=== PATIENT | female | born 1995 | race Hispanic/Latino ===

== ENCOUNTER 2018-04-28 15:07 | Emergency (ER) | payer OTHER, SELFPAY ==
[2018-04-28 16:15] LABS: Urine Bacteria 20-50 /HPF (<20); Urine Culture Reflex Order REFLEXED; Urine RBC >50 /HPF (NONE SEEN)
[2018-04-28 16:22] LABS: Urine Blood 3+ (NEG); Urine Glucose NEGATIVE (NEG); Urine Protein 2+ (NEG); Urine Specific Gravity >1.030 (1.005-1.030)
[2018-04-28 16:39] LABS: Specific Gravity > 1.030 (1.005-1.030)
--- NOTE | 2018-04-28 16:57 | ER ---
Nurse's Notes [facility] Name: Marissa Hernandez Age: 22 yrs Sex: Female : 1995 Arrival Date: 04/28/2018 Time: 15:09 Bed 10 Private MD: Diagnosis: Urinary tract infection, site not specified Presentation: 04/28 15:17 Presenting complaint: Patient states: when i pee today, its rosen really bad, and i hj started bleeding from my vagina; reports fever and chills; denies N/V;. Transition of care: patient was not received from another setting of care. Onset of symptoms was April 28, 2018. Risk Assessment: Do you want to hurt yourself or someone else? Patient reports no desire to harm self or others. Initial Sepsis Screen: Does the patient meet any 2 criteria? No. Patient's initial sepsis screen is negative. Does the patient have a suspected source of infection? No. Patient's initial sepsis screen is negative. Care prior to arrival: None. 15:17 Method Of Arrival: Ambulatory 15:17 Acuity: MAURA 4 hj 15:46 Note provided urine and ran by medical technologist generalist Joe;. Triage Assessment: 15:18 General: Appears in no apparent distress. uncomfortable, Behavior is calm, cooperative, hj appropriate for age. Pain: Complains of pain in bladder. 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 - Social history:: Smoking status: Patient/guardian denies using tobacco, Patient/guardian denies using alcohol. - Ebola Screening: : Patient negative for fever greater than or equal to 101.5 degrees Fahrenheit, and additional compatible Ebola Virus Disease symptoms Patient denies exposure to infectious person Patient denies travel to an Ebola-affected area in the 21 days before illness onset. Screenin:19 Abuse screen: Denies threats or abuse. Denies injuries from another. Nutritional hj screening: No deficits noted. Tuberculosis screening: No symptoms or risk factors identified. Fall Risk None identified. Assessment: 16:30 General: Appears in no apparent distress. Pain: Complains of pain in suprapubic area. iw Neuro: Level of Consciousness is awake, alert, obeys commands, Moves all extremities. Full function. Cardiovascular: Patient's skin is warm and dry. Respiratory: Respiratory effort is even, unlabored, Respiratory pattern is regular. : Reports burning with urination, pain in suprapubic area with urination. Derm: Skin is intact, is healthy with good turgor. Musculoskeletal: Range of motion: intact in all extremities. Vital Signs: 15:19 BP 114 / 47; Pulse 112; Resp 18; Temp 99.3(O); Pulse Ox 100% ; Weight 61.23 kg; Height hj 4 ft. 11 in. (149.86 cm); Pain 6/10; 15:19 Body Mass Index 27.26 (61.23 kg, 149.86 cm) ED Course: 15:09 Patient arrived in ED. mr 15:18 Triage completed. hj 15:19 Arm band placed on right wrist. hj 15:21 Patient has correct armband on for positive identification. Bed in low position. Call hj light in reach. Side rails up X 1. Adult w/ patient. 15:27 [facility]ushing [facility]C [facility]. kb 15:27 Víctor Epperson MD is Attending Physician. kb 15:40 Urine collected: clean catch specimen, clear, blood tinged, Amount Voided: 80mL. jp3 16:17 Urine Dipstick--Ancillary (enter results) Sent. jp3 16:17 Urine Culture Sent. jp3 16:58 Diana Cordoba, RN is Primary Nurse. iw 17:10 No provider procedures requiring assistance completed. Patient did not have IV access iw during this emergency room visit. Administered Medications: 17:05 Drug: Pyridium 200 mg Route: PO; iw 17:05 Drug: Macrobid 100 mg Route: PO; iw Outcome: 16:57 Discharge ordered by . kb 17:12 Discharged to home ambulatory, with family. iw 17:12 Condition: good 17:12 Discharge instructions given to patient, Instructed on discharge instructions, follow up and referral plans. medication usage, Demonstrated understanding of instructions, follow-up care, medications, Prescriptions given X 2. 17:13 Patient left the ED. iw Addendum: 05/01/2018 08:10 Addendum: Culture Results: Positive urine culture. No further action required. Bacteria s s sensitive to prescribed antibiotic. Signatures: Amina Rushing, [facility] CHILD CARE ASSISTANT-Aziza Liseth Khan Diana Cordoba, RN Corrine Nielsen, JUAN CARLOS RANGEL ss Amol Murdock, JUAN CARLOS RN Don Hameed jp3 Corrections: (The following items were deleted from the chart) 04/28 15:23 15:19 Pulse 112bpm; Resp 18bpm; Pulse Ox 100%; Temp 99.3F Oral; 61.23 kg; Height 4 ft. hj 11 in.; BMI: 27.2; Pain 10/11; hj
--- NOTE | 2018-04-28 16:57 | EDPHYS ---
Physician Documentation [facility] Name: Marissa Hernandez Age: 22 yrs Sex: Female : 1995 Arrival Date: 04/28/2018 Time: 15:09 Bed 10 Private MD: ED Physician Víctor Epperson HPI: 04/28 16:50 This 22 yrs old Female presents to ER via Ambulatory with complaints of kb Urinary Problem. 16:50 The patient presents with urinary symptoms, dysuria, frequency, vaginal bleeding that kb is light. Onset: The symptoms/episode began/occurred just prior to arrival. Modifying factors: The symptoms are alleviated by nothing, the symptoms are aggravated by urinating. Associated signs and symptoms: Pertinent positives: dysuria, urinary frequency, vaginal bleeding. Severity of symptoms: At their worst the symptoms were mild, in the emergency department the symptoms are unchanged. The patient has not experienced similar symptoms in the past. The patient has not recently seen a physician. 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 Reports fever and chills as well. 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 - Social history:: Smoking status: Patient/guardian denies using tobacco, Patient/guardian denies using alcohol. - Ebola Screening: : Patient negative for fever greater than or equal to 101.5 degrees Fahrenheit, and additional compatible Ebola Virus Disease symptoms Patient denies exposure to infectious person Patient denies travel to an Ebola-affected area in the 21 days before illness onset. ROS: 16:49 ENT: Negative for injury, pain, and discharge, Neck: Negative for injury, pain, and kb swelling, Cardiovascular: Negative for chest pain, palpitations, and edema, Respiratory: Negative for shortness of breath, cough, wheezing, and pleuritic chest pain, Abdomen/GI: Negative for abdominal pain, nausea, vomiting, diarrhea, and constipation, Back: Negative for injury and pain, MS/Extremity: Negative for injury and deformity, Skin: Negative for injury, rash, and discoloration, Neuro: Negative for headache, weakness, numbness, tingling, and seizure. 16:49 Constitutional: Positive for chills, fever, Negative for body aches, fatigue, malaise, poor PO intake, weight loss. 16:49 : Positive for urinary symptoms, urinary frequency, burning with urination, vaginal bleeding. Exam: 16:49 Constitutional: This is a well developed, well nourished patient who is awake, alert, kb and in no acute distress. Head/Face: Normocephalic, atraumatic. Chest/axilla: Normal chest wall appearance and motion. Nontender with no deformity. No lesions are appreciated. Cardiovascular: Regular rate and rhythm with a normal S1 and S2. No gallops, murmurs, or rubs. Normal PMI, no JVD. No pulse deficits. Respiratory: Lungs have equal breath sounds bilaterally, clear to auscultation and percussion. No rales, rhonchi or wheezes noted. No increased work of breathing, no retractions or nasal flaring. Abdomen/GI: Soft, non-tender, with normal bowel sounds. No distension or tympany. No guarding or rebound. No evidence of tenderness throughout. Skin: Warm, dry with normal turgor. Normal color with no rashes, no lesions, and no evidence of cellulitis. MS/ Extremity: Pulses equal, no cyanosis. Neurovascular intact. Full, normal range of motion. Neuro: Awake and alert, GCS 15, oriented to person, place, time, and situation. Cranial nerves II-XII grossly intact. Motor strength 5/5 in all extremities. Sensory grossly intact. Cerebellar exam normal. Normal gait. Vital Signs: 15:19 BP 114 / 47; Pulse 112; Resp 18; Temp 99.3(O); Pulse Ox 100% ; Weight 61.23 kg; Height 4 ft. 11 in. (149.86 cm); Pain 6/10; 15:19 Body Mass Index 27.26 (61.23 kg, 149.86 cm) MDM: 16:18 Patient medically screened. kb 16:50 Data reviewed: vital signs, nurses notes. Data interpreted: Pulse oximetry: on room air kb is 100 %. Interpretation: normal. Counseling: I had a detailed discussion with the patient and/or guardian regarding: the historical points, exam findings, and any diagnostic results supporting the discharge/admit diagnosis, lab results, the need for outpatient follow up, an OB/Gyne specialist, to return to the emergency department if symptoms worsen or persist or if there are any questions or concerns that arise at home. 04/28 15:26 Order name: Urine Microscopic Only; Complete Time: 16:18 kb 04/28 16:07 Order name: Urine Dipstick--Ancillary (enter results); Complete Time: 16:24 bd 04/28 16:16 Order name: Urine Culture EDOR 04/28 16:29 Order name: Test, Urine; Complete Time: 16:48 EDOR 04/28 15:26 Order name: Urine Dipstick-Ancillary (obtain specimen); Complete Time: 16:17 kb 04/28 15: Order name: Urine Test (obtain specimen); Complete Time: 16:17 kb Administered Medications: 17:05 Drug: Pyridium 200 mg Route: PO; iw 17:05 Drug: Macrobid 100 mg Route: PO; Disposition: 04/29 09:33 Co-signature as Attending Physician, Víctor Epperson MD I agree with the assessment and kdr plan of care. Disposition: 04/28/18 16:57 Discharged to Home. Impression: Urinary tract infection, site not specified. - Condition is Stable. - Discharge Instructions: Urinary Tract Infection, Adult, [id number]. - Prescriptions for Pyridium 200 mg Oral Tablet - take 1 tablet by ORAL route every 8 hours for 3 days; 9 tablet. Macrobid 100 mg Oral Capsule - take 1 capsule by ORAL route every 12 hours for 7 days; 14 capsule. - Medication Reconciliation Form, Thank You Letter, Antibiotic Education, Prescription Opioid Use, Work release form form. - Follow up: Emergency Department; When: As needed; Reason: Worsening of condition. Follow up: Private Physician; When: 2 - 3 days; Reason: Recheck today's complaints, Continuance of care, Re-evaluation by your physician. Signatures: Dispatcher [employer] [facility] Amina Rushing, Víctor Daley MD MD kdr Williams, Irene, RN RN Amol Cancino RN RN Corrections: (The following items were deleted from the chart) 04/28 17:13 16:57 04/28/2018 16:57 Discharged to Home. Impression: Urinary tract infection, site iw not specified. Condition is Stable. Forms are Medication Reconciliation Form, Thank You Letter, Antibiotic Education, Prescription Opioid Use. Follow up: Emergency Department; When: As needed; Reason: Worsening of condition. Follow up: Private Physician; When: 2 - 3 days; Reason: Recheck today's complaints, Continuance of care, Re-evaluation by your physician. kb
[2018-04-28] MEDS ORDERED: PHENAZOPYRIDINE 100MG TAB PO ONE (17:10)
[2018-04-28] MEDS ORDERED: NITROFURAN MACRO 100 MG CAP PO ONE (17:10)
[2018-04-28 17:38] VITALS: BP 114/47; TEMP 99.3; O2SAT 100
== END 2018-04-28 17:13 | disposition home or self-care (01) ==
LOC: ER 15:07
DX: N39.0 Urinary tract infection, site not specified (principal)
CPT/HCPCS: 81003; 81015; 81025; 87077; 87086; 87088; 87186; 99283

== ENCOUNTER 2018-07-07 09:20 | Emergency (ER) | payer SELFPAY ==
[2018-07-07 09:49] LABS: Urine Blood 1+ (NEG); Urine Glucose NEGATIVE (NEG); Urine Protein 1+ (NEG); Urine Specific Gravity >1.030 (1.005-1.030); Urine pH 5.5 (5.0-7.0)
--- OUTSIDE RECORDS SUMMARY | 2018-07-07 10:12 | XMS REPORT ---
:1995 [facility] Address [address] [place] [address] Dr. Barney. [address] [place] [id number] Care Team Providers Name Role Phone Unavailable Unavailable Unavailable Problems This patient has no known problems. Allergies, Adverse Reactions, Alerts This patient has no known allergies or adverse reactions. Medications This patient has no known medications.
[2018-07-07] MEDS ORDERED: NA CHLORIDE 0.9% 2,000 ML ONE (10:29)
[2018-07-07 10:41] LABS: Absolute Lymphocytes (CBC) 0.8 K/uL (0.7-4.9); Absolute Monocytes 0.5 K/uL (0.1-1.3); Absolute Neutrophil 6.5 K/uL (1.8-8.0); Basophils % 0.3 % (0-1.3); Eosinophils % 0.8 % (0-4.4); Hematocrit 42.4 % (36.0-45.0); Lymphocytes % 9.7 % (15.3-44.8); MPV 8.2 fL (7.6-11.3); Monocytes % 6.5 % (3.3-12.3); RBC Red Blood Cell Count 4.95 M/uL (3.86-4.86)
[2018-07-07 11:04] LABS: BUN Blood Urea Nitrogen 6 mg/dL (7-18); Bicarbonate 25 mmol/L (21-32); Glucose Level 91 mg/dL (74-106); Potassium 3.8 mmol/L (3.5-5.1); Sodium Level 137 mmol/L (136-145)
[2018-07-07] MEDS ORDERED: ACETAMINOPHEN 500 MG TAB ONE (11:52)
--- NOTE | 2018-07-07 12:42 | EDPHYS ---
Physician Documentation [facility] Name: Marissa Hernandez Age: 22 yrs Sex: Female : 1995 Arrival Date: 07/07/2018 Time: 09:23 Bed 17 Private MD: None, None ED Physician Víctor Epperson HPI: 07/07 10:47 This 22 yrs old Female presents to ER via Ambulatory with complaints of Flu jr8 Symptoms, Abdominal Pain. 10:47 Patient state that she has had two day history of flu like symptoms. Patients child jr8 tested positive for influenza last week. Patient approximately 7 weeks . Has not been hungry. No bleeding or vaginal spotting. Mild lower abdominal cramping . Severity of symptoms: At their worst the symptoms were moderate in the emergency department the symptoms are unchanged. The patient has not experienced similar symptoms in the past. The patient has not recently seen a physician. 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 - Social history:: Smoking status: Patient/guardian denies using tobacco. - Ebola Screening: : Patient denies travel to an Ebola-affected area in the 21 days before illness onset. ROS: 10:47 Constitutional: Positive for body aches, chills, fever, malaise, poor PO intake. jr8 10:47 Abdomen/GI: Positive for abdominal cramps, Negative for nausea, vomiting, and diarrhea, abdominal distension, anorexia, dysphagia, hematemesis, black/tarry stool, rectal pain, rectal bleeding, bowel incontinence, flatulence. Exam: 10:47 Eyes: Pupils equal round and reactive to light, extra-ocular motions intact. Lids and jr8 lashes normal. Conjunctiva and sclera are non-icteric and not injected. Cornea within normal limits. Periorbital areas with no swelling, redness, or edema. ENT: Nares patent. No nasal discharge, no septal abnormalities noted. Tympanic membranes are normal and external auditory canals are clear. Oropharynx with no redness, swelling, or masses, exudates, or evidence of obstruction, uvula midline. Mucous membranes moist. Neck: Trachea midline, no thyromegaly or masses palpated, and no cervical lymphadenopathy. Supple, full range of motion without nuchal rigidity, or vertebral point tenderness. No Meningismus. Cardiovascular: Regular rate and rhythm with a normal S1 and S2. No gallops, murmurs, or rubs. Normal PMI, no JVD. No pulse deficits. Respiratory: Lungs have equal breath sounds bilaterally, clear to auscultation and percussion. No rales, rhonchi or wheezes noted. No increased work of breathing, no retractions or nasal flaring. Abdomen/GI: Soft, non-tender, with normal bowel sounds. No distension or tympany. No guarding or rebound. No evidence of tenderness throughout. Back: No spinal tenderness. No costovertebral tenderness. Full range of motion. Skin: Warm, dry with normal turgor. Normal color with no rashes, no lesions, and no evidence of cellulitis. MS/ Extremity: Pulses equal, no cyanosis. Neurovascular intact. Full, normal range of motion. Neuro: Awake and alert, GCS 15, oriented to person, place, time, and situation. Cranial nerves II-XII grossly intact. Motor strength 5/5 in all extremities. Sensory grossly intact. Cerebellar exam normal. Normal gait. Vital Signs: 09:31 BP 123 / 55; Pulse 100; Resp 18; Temp 98.3(TE); Pulse Ox 100% on R/A; Pain 0/10; tw2 10:48 BP 113 / 67; Pulse 106; Resp 19; Temp 100.0(O); Pulse Ox 100% on R/A; ls4 11:44 BP 110 / 70; Pulse 98; Resp 16; Temp 99.9(O); Pulse Ox 99% on R/A; Pain 3/10; ls4 MDM: 09:26 Patient medically screened. jr8 12:40 Data reviewed: vital signs, nurses notes, lab test result(s), Flu: positive. Data jr8 interpreted: Pulse oximetry: on room air is 99 %. Interpretation: normal. Counseling: I had a detailed discussion with the patient and/or guardian regarding: the historical points, exam findings, and any diagnostic results supporting the discharge/admit diagnosis, lab results, the need for outpatient follow up, an OB/Gyne specialist, to return to the emergency department if symptoms worsen or persist or if there are any questions or concerns that arise at home. Response to treatment: the patient's symptoms have markedly improved after treatment, patient is well hydrated. 07/07 09:44 Order name: Urine Dipstick--Ancillary (enter results); Complete Time: 10:14 [facility] 07/07 09:44 Order name: Urine --Ancillary (enter results); Complete Time: 10:14 [facility] 07/07 10:14 Order name: CBC with Diff; Complete Time: 10:49 [facility] 07/07 10:14 Order name: Basic Metabolic Panel; Complete Time: 11:15 [facility] 07/07 10:14 Order name: Influenza Screen (a \T\ B); Complete Time: 10:49 [facility] 07/07 09:44 Order name: Urine Dipstick-Ancillary (obtain specimen); Complete Time: 09:44 [facility] 07/07 09:44 Order name: Urine Test (obtain specimen); Complete Time: 09:44 [facility] 07/07 10:14 Order name: IV; Complete Time: 10:33 jr8 Administered Medications: 10:32 Drug: NS 0.9% 1000 ml Route: IV; Rate: 1000 ml; Site: right antecubital; ls4 12:55 Follow up: IV Status: Completed infusion; IV Intake: 1000ml ls4 10:33 Drug: NS 0.9% 1000 ml Route: IV; Rate: 1000 ml; Site: right antecubital; ls4 12:55 Follow up: IV Status: Completed infusion; IV Intake: 1000ml ls4 11:45 Drug: Tylenol 1000 mg Route: PO; ls4 12:15 Follow up: Response: No adverse reaction; Marked relief of symptoms ls4 Disposition: 13:35 Co-signature as Attending Physician, Víctor Epperson MD I agree with the assessment and kdr plan of care. Disposition: 07/07/18 12:40 Discharged to Home. Impression: Influenza due to identified novel influenza A virus. - Condition is Stable. - Discharge Instructions: Influenza, Adult. - Prescriptions for Tamiflu 75 mg Oral Capsule - take 1 capsule by ORAL route every 12 hours for 5 days; 10 capsule. promethazine 25 mg Oral Tablet - take 1 tablet by ORAL route every 6 hours As needed; 20 tablet. - Medication Reconciliation Form, Thank You Letter, Antibiotic Education, Prescription Opioid Use, Work release form, Family Work Release form. - Follow up: Private Physician; When: 5 - 6 days; Reason: Recheck today's complaints, Continuance of care, Re-evaluation by your physician. - Problem is new. - Symptoms have improved. - Notes: Tylenol only for fevers Push fluids Rest Robutussin for cough Signatures: Dispatcher [employer] EDMS Víctor Epperson MD MD kdr Martinez, Eric em1 Alfonso Correa PA PA jr8 Jo Ann Corona, RN RN tw2 Tarsha Durán 5 Kika Hogan RN RN ls4 Corrections: (The following items were deleted from the chart) 13:30 12:40 07/07/2018 12:40 Discharged to Home. Impression: Influenza due to identified mh5 novel influenza A virus. Condition is Stable. Forms are Work release form, Medication Reconciliation Form, Thank You Letter, Antibiotic Education, Prescription Opioid Use. Follow up: Private Physician; When: 5 - 6 days; Reason: Recheck today's complaints, Continuance of care, Re-evaluation by your physician. Problem is new. Symptoms have improved. jr8
--- NOTE | 2018-07-07 12:42 | ER ---
Nurse's Notes [facility] Name: Marissa Hernandez Age: 22 yrs Sex: Female : 1995 Arrival Date: 07/07/2018 Time: 09:23 Bed 17 Private MD: None, None Diagnosis: Influenza due to identified novel influenza A virus Presentation: 07/07 09:28 Presenting complaint: Patient states: i have been feeling bad for 2 days, coughing and tw2 congestion then this morning i had an anxiety attack because i couldn't breathe and when i cough i have stomach pain and i feel nauseous all the time and i cant eat. Transition of care: patient was not received from another setting of care. Onset of symptoms was July 07, 2018. Risk Assessment: Do you want to hurt yourself or someone else? Patient reports no desire to harm self or others. Initial Sepsis Screen: Does the patient meet any 2 criteria? No. Patient's initial sepsis screen is negative. Does the patient have a suspected source of infection? No. Patient's initial sepsis screen is negative. Care prior to arrival: None. 09:28 Method Of Arrival: Ambulatory tw2 09:28 Acuity: MAURA 3 tw2 Triage Assessment: 09:29 General: Appears in no apparent distress. Behavior is anxious. Pain: Complains of pain tw2 in abdomen and pelvis. EENT: Reports nasal congestion nasal discharge. Neuro: Reports headache. Respiratory: Reports cough that is. GI: Reports nausea. 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 - Social history:: Smoking status: Patient/guardian denies using tobacco. - Ebola Screening: : Patient denies travel to an Ebola-affected area in the 21 days before illness onset. Screenin:32 Abuse screen: Denies threats or abuse. Nutritional screening: No deficits noted. tw2 Tuberculosis screening: No symptoms or risk factors identified. Fall Risk None identified. Assessment: 10:10 General: Appears uncomfortable, Behavior is calm, cooperative. Pain: Complains of pain ls4 in pelvis Pain currently is 5 out of 10 on a pain scale. Neuro: No deficits noted. Cardiovascular: No deficits noted. Respiratory: Airway is patent Respiratory effort is even, unlabored, Respiratory pattern is regular, symmetrical, Breath sounds are clear bilaterally. Musculoskeletal: No deficits noted. 10:26 GI: Bowel sounds present X 4 quads. Abd is soft and non tender. ls4 11:44 Reassessment: Patient appears in no apparent distress at this time. Patient and/or ls4 family updated on plan of care and expected duration. Pain level reassessed. Patient is alert, oriented x 3, equal unlabored respirations, skin warm/dry/pink. Patient states symptoms have improved. 12:37 Reassessment: Patient appears in no apparent distress at this time. Patient and/or ls4 family updated on plan of care and expected duration. Pain level reassessed. Patient is alert, oriented x 3, equal unlabored respirations, skin warm/dry/pink. Patient states symptoms have improved. Vital Signs: 09:31 BP 123 / 55; Pulse 100; Resp 18; Temp 98.3(TE); Pulse Ox 100% on R/A; Pain 0/10; tw2 10:48 BP 113 / 67; Pulse 106; Resp 19; Temp 100.0(O); Pulse Ox 100% on R/A; ls4 11:44 BP 110 / 70; Pulse 98; Resp 16; Temp 99.9(O); Pulse Ox 99% on R/A; Pain 3/10; ls4 ED Course: 09:23 Patient arrived in ED. dl4 09:23 None, None is Private Physician. dl4 09:26 Alfonso Correa PA is PHCP. jr8 09:26 Víctor Epperson MD is Attending Physician. jr8 09:28 Jo Ann Corona RN is Primary Nurse. tw2 09:29 Triage completed. tw2 09:29 Arm band placed on. tw2 09:32 Bed in low position. Call light in reach. Pulse ox on. NIBP on. tw2 09:55 Report given to JUAN CARLOS Anand. tw2 10:22 No provider procedures requiring assistance completed. ls4 Administered Medications: 10:32 Drug: NS 0.9% 1000 ml Route: IV; Rate: 1000 ml; Site: right antecubital; ls4 12:55 Follow up: IV Status: Completed infusion; IV Intake: 1000ml ls4 10:33 Drug: NS 0.9% 1000 ml Route: IV; Rate: 1000 ml; Site: right antecubital; ls4 12:55 Follow up: IV Status: Completed infusion; IV Intake: 1000ml ls4 11:45 Drug: Tylenol 1000 mg Route: PO; ls4 12:15 Follow up: Response: No adverse reaction; Marked relief of symptoms ls4 Intake: 12:55 IV: 1000ml; Total: 1000ml. ls4 12:55 IV: 1000ml; Total: 2000ml. ls4 Outcome: 12:40 Discharge ordered by . carlito 13:30 Patient left the ED. [facility] Signatures: Alfonso Correa PA PA jr8 Jo Ann Croona RN RN tw2 Tarsha Durán 5 Kika Hogan RN RN ls4 Sreedhar Meade dl4 Corrections: (The following items were deleted from the chart) 09:30 09:28 Presenting complaint: Patient states: i have been feeling bad for 2 days, tw2 coughing and congestion then this morning i had an anxiety attack because i couldn't breathe and when i cough i have stomach pain tw2
[2018-07-07 13:37] VITALS: BP 110/70; TEMP 99.9; O2SAT 99
== END 2018-07-07 13:30 | disposition home or self-care (01) ==
LOC: ER 09:20
DX: J10.1 Influenza due to other identified influenza virus with other respiratory manifestations (principal); Z3A.01 Less than 8 weeks gestation of pregnancy
CPT/HCPCS: 36415; 80048; 81003; 81025; 85025; 87804; 96360; 96361; 99283; J7030

== ENCOUNTER 2018-10-30 13:31 | Emergency (ER) | payer BC, SELFPAY ==
--- OUTSIDE RECORDS SUMMARY | 2018-10-30 13:34 | XMS REPORT ---
:1995 [facility] Address [address] [place] [address] Dr. Barney[address] [place] [id number] Care Team Providers Name Role Phone Unavailable Unavailable Unavailable Problems This patient has no known problems. Allergies, Adverse Reactions, Alerts This patient has no known allergies or adverse reactions. Medications This patient has no known medications.
--- NOTE | 2018-10-30 18:05 | ER ---
Nurse's Notes [facility] Name: Marissa Hernandez Age: 23 yrs Sex: Female : 1995 Arrival Date: 10/30/2018 Time: 13:34 Bed External Waiting Private MD: Diagnosis: Presentation: 10/30 13:34 Presenting complaint: Patient states: Intermittent abdominal pain that radiates to her ss back and diarrhea since last night. Denies fever. Patient reports that she is currently 24 weeks . Transition of care: patient was not received from another setting of care. Onset of symptoms was October 29, 2018. Risk Assessment: Do you want to hurt yourself or someone else? Patient reports no desire to harm self or others. Initial Sepsis Screen: Does the patient meet any 2 criteria? HR > 90 bpm. No. Patient's initial sepsis screen is negative. Does the patient have a suspected source of infection? Yes: Acute abdominal pain. Care prior to arrival: None. 13:34 Method Of Arrival: Ambulatory ss 13:34 Acuity: MAURA 3 ss 13:42 Note Patient sent to L\\T\\D for evaluation, will return to ER once cleared. ss Triage Assessment: 13:40 General: Appears in no apparent distress. comfortable, Behavior is calm, cooperative, ss appropriate for age. Pain: Complains of pain in abdomen Pain radiates to back Pain currently is 10 out of 10 on a pain scale. Is intermittent. Neuro: Level of Consciousness is awake, alert, obeys commands, Oriented to person, place, time, situation. Cardiovascular: Patient's skin is warm and dry. Respiratory: Airway is patent Respiratory effort is even, unlabored, Respiratory pattern is regular, symmetrical. GI: Reports lower abdominal pain, upper abdominal pain, diarrhea, nausea. 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 - Social history:: Smoking status: Patient/guardian denies using tobacco. - Ebola Screening: : Patient denies travel to an Ebola-affected area in the 21 days before illness onset. Assessment: 16:12 Reassessment: called L\\T\\D, patient still being monitored at this time. ss 17:59 Reassessment: Spoke with RN in \\T\\D who states patient was cleared and sent home. Will ss not return to ED for further evaluation. Vital Signs: 13:40 BP 120 / 74; Pulse 92; Resp 18; Temp 98.0; Pulse Ox 99% on R/A; Weight 67.13 kg (R); ss Height 4 ft. 11 in. (149.86 cm) (R); Pain 10/10; 13:40 Body Mass Index 29.89 (67.13 kg, 149.86 cm) ED Course: 13:34 Patient arrived in ED. as 13:40 Triage completed. 13:47 Mike Ojeda PA is PHCP. [facility] 13:47 Peter Lara MD is Attending Physician. [facility] 17:59 No provider procedures requiring assistance completed. Patient did not have IV access ss during this emergency room visit. Administered Medications: No medications were administered Outcome: 17:59 Eloped It was discovered after patient registration to ED that she was 24 weeks ss , thus needing evaluation in L\\T\\D prior to ER visit. Pt sent to T\\D and told to come back to ER for further evaluation after she is cleared. 17:59 Condition: "good" according to T\\D nurse 18:04 Patient left the ED. Signatures: Mike Ojeda PA PA jmm Martinez, Amelia as Smirch, Shelby, JUAN CARLOS RN ss Corrections: (The following items were deleted from the chart) 13:42 13:34 Presenting complaint: Patient states: Abdominal pain that radiates to her back ss and diarrhea since last night. Denies fever ss
[2018-10-30 18:19] VITALS: BP 120/74; TEMP 98; O2SAT 99
== END 2018-10-30 18:04 | disposition left against medical advice (07) ==
LOC: ER 13:31
DX: O26.892 Other specified pregnancy related conditions, second trimester (principal); Z3A.24 24 weeks gestation of pregnancy
CPT/HCPCS: 99281

== ENCOUNTER 2019-03-06 00:28 | Emergency (ER) | payer BC ==
[2019-03-06 01:14] LABS: Absolute Lymphocytes (CBC) 2.7 K/uL (0.7-4.9); Hematocrit 37.4 % (36.0-45.0); Lymphocytes % 25.7 % (15.3-44.8); RBC Red Blood Cell Count 4.35 M/uL (3.86-4.86)
[2019-03-06 01:23] LABS: Protime INR 1.06
[2019-03-06] MEDS ORDERED: ACETAMINOPHEN 325 MG TABLET ONE (01:37)
[2019-03-06 01:42] LABS: ALT/SGPT 86 U/L (12-78); AST/SGOT 40 U/L (15-37); Albumin 3.8 g/dL (3.4-5.0); Alkaline Phosphatase 107 U/L (45-117); BUN Blood Urea Nitrogen 19 mg/dL (7-18); Bicarbonate 26 mmol/L (21-32); Bilirubin Direct < 0.1 mg/dL (0-0.2); Bilirubin Total 0.2 mg/dL (0.2-1.0); Glucose Level 88 mg/dL (74-106); Magnesium 2.2 mg/dL (1.8-2.4); NT PRO-BNP 14 pg/mL (<125); Potassium 4.1 mmol/L (3.5-5.1); Protein, Total 7.8 g/dL (6.4-8.2); Sodium Level 140 mmol/L (136-145); Troponin (Emerg Dept Use Only) < 0.02 ng/mL (0.0-0.045)
[2019-03-06 01:47] LABS: Urine Bacteria <20 /HPF (<20); Urine Culture Reflex Order REFLEXED
--- NOTE | 2019-03-06 02:59 | ER ---
Nurse's Notes [facility] Name: Marissa Hernandez Age: 23 yrs Sex: Female : 1995 Arrival Date: 03/06/2019 Time: 00:31 Bed 8 Private MD: Diagnosis: Headache;Other chest pain Presentation: 03/06 00:50 Presenting complaint: Patient states: chest pain to left chest wall and left arm with ak1 palpation since last Thursday. Transition of care: patient was not received from another setting of care. Onset of symptoms is unknown. Risk Assessment: Do you want to hurt yourself or someone else? Patient reports no desire to harm self or others. Initial Sepsis Screen: Does the patient meet any 2 criteria? No. Patient's initial sepsis screen is negative. Does the patient have a suspected source of infection? No. Patient's initial sepsis screen is negative. Note pt PCP Dr. Adams with [facility]. Care prior to arrival: None. 00:50 Method Of Arrival: Ambulatory ak1 00:50 Acuity: MAURA 3 ak1 Triage Assessment: 00:53 General: Appears in no apparent distress. Behavior is calm, cooperative. Pain: ak1 Complains of pain in chest and left arm. EENT: No signs and/or symptoms were reported regarding the EENT system. Neuro: No deficits noted. Cardiovascular: No deficits noted. Respiratory: No deficits noted. GI: No signs and/or symptoms were reported involving the gastrointestinal system. : No signs and/or symptoms were reported regarding the genitourinary system. Derm: No signs and/or symptoms reported regarding the dermatologic system. Musculoskeletal: Range of motion: intact in all extremities, Reports pain in chest since last Thursday with palpation. . 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 ak1 Historical: - Allergies: 00:53 No Known Allergies; ak1 - Home Meds: 00:53 Iron CR Oral [Active]; Motrin Oral [Active]; Vitamin Oral [Active]; ak1 - PMHx: 00:53 None; ak1 - PSHx: 00:53 ; ak1 - Immunization history:: Adult Immunizations unknown. - Social history:: Smoking status: Patient/guardian denies using tobacco. - Ebola Screening: : No symptoms or risks identified at this time. Screenin:55 Abuse screen: Denies threats or abuse. Denies injuries from another. Nutritional ak1 screening: No deficits noted. Tuberculosis screening: No symptoms or risk factors identified. Fall Risk None identified. Assessment: 01:17 General: Appears in no apparent distress. Behavior is calm, cooperative, anxious. Pain: ak1 Denies pain. Neuro: Level of Consciousness is awake, alert, obeys commands. Vital Signs: 00:53 BP 127 / 80; Pulse 86; Resp 16; Temp 98.6; Pulse Ox 100% on R/A; Weight 68.04 kg (R); ak1 Height 4 ft. 11 in. (149.86 cm) (R); Pain 7/10; 00:53 Body Mass Index 30.30 (68.04 kg, 149.86 cm) ak1 ED Course: 00:31 Patient arrived in ED. ds1 00:46 Morris Pineda PA is PHCP. cp 00:50 Michelle Hair, RN is Primary Nurse. ak1 00:51 Triage completed. ak1 00:53 Arm band placed on Patient placed in an exam room, on a stretcher, Patient notified of ak1 wait time. 00:55 Patient has correct armband on for positive identification. Placed in gown. Bed in low ak1 position. Call light in reach. Side rails up X 1. 01:00 Initial lab(s) drawn, by me, sent to lab. Inserted saline lock: 22 gauge in right fc antecubital area, using aseptic technique. Blood collected. 01:03 XRAY Chest (1 view) In Process Unspecified. EDMS 01:06 Morris Weinberg MD is Attending Physician. cp 02:23 CT Head Brain wo Cont In Process Unspecified. EDMS 02:24 CT Chest For PE Angio In Process Unspecified. EDMS 03:11 No provider procedures requiring assistance completed. IV discontinued, intact, ak1 bleeding controlled, No redness/swelling at site. Pressure dressing applied. Administered Medications: 01:40 Drug: Tylenol 650 mg Route: PO; ak1 03:12 Follow up: Response: No adverse reaction ak1 Outcome: 02:58 Discharge ordered by . cp 03:11 Discharged to home ambulatory, with family. ak1 03:11 Condition: improved 03:11 Discharge instructions given to patient, Instructed on discharge instructions, follow up and referral plans. no drinking with medication, no driving heavy equipment, medication usage, Demonstrated understanding of instructions, follow-up care, medications, Prescriptions given X 1. 03:16 Patient left the ED. ak1 Signatures: Dispatcher [employer] EDMS Ev Ellington RN RN fc Sanford, Demi ds1 Michelle Hair RN RN ak1 Morris Pineda PA PA cp
--- NOTE | 2019-03-06 02:59 | EDPHYS ---
Physician Documentation [facility] Name: Marissa Hernandez Age: 23 yrs Sex: Female : 1995 Arrival Date: 03/06/2019 Time: 00:31 Bed 8 Private MD: ED Physician Morris Weinberg HPI: 03/06 01:06 This 23 yrs old Female presents to ER via Ambulatory with complaints of Back cp Pain, Chest Pain. 01:06 The patient complains of pain to the left side of head and behind left eye. cp 01:06 The patient describes the headache as aching. cp 01:06 Onset: The symptoms/episode began/occurred gradually. cp 01:06 Severity of symptoms: in the emergency department the pain a " 5" out of "10". cp 01:08 The patient or guardian reports chest pain that is located primarily in the anterior cp chest wall, left. 01:08 The pain radiates to the left arm. Associated signs and symptoms: Pertinent negatives: cp fever, weakness, syncope, shortness of breath, cough. The chest pain is described as aching. Duration: The patient or guardian reports a single episode, that is still ongoing, started 4 days ago. 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 ak1 Historical: - Allergies: 00:53 No Known Allergies; ak1 - Home Meds: 00:53 Iron CR Oral [Active]; Motrin Oral [Active]; Vitamin Oral [Active]; ak1 - PMHx: 00:53 None; ak1 - PSHx: 00:53 ; ak1 - Immunization history:: Adult Immunizations unknown. - Social history:: Smoking status: Patient/guardian denies using tobacco. - Ebola Screening: : No symptoms or risks identified at this time. ROS: 01:15 Constitutional: Negative for body aches, chills, fever, poor PO intake. cp 01:15 Eyes: Negative for injury, pain, redness, and discharge. cp 01:15 ENT: Negative for drainage from ear(s), ear pain, sore throat, difficulty swallowing, difficulty handling secretions. 01:15 Neck: Negative for pain with movement, pain at rest, stiffness, tenderness. 01:15 Cardiovascular: Positive for chest pain, palpitations, Negative for edema. 01:15 Respiratory: Negative for cough, shortness of breath, wheezing. 01:15 Abdomen/GI: Negative for abdominal pain, nausea, vomiting, and diarrhea, constipation. 01:15 Back: Negative for injury or acute deformity, decreased range of motion. 01:15 : Negative for urinary symptoms. 01:15 MS/extremity: Positive for pain, of the left arm, Negative for injury or acute deformity, decreased range of motion. 01:15 Skin: Negative for cellulitis, rash. 01:15 Neuro: Positive for headache, Negative for altered mental status, numbness, syncope, visual changes, weakness. 01:15 All other systems are negative. Exam: 01:20 ECG was reviewed by the Attending Physician. cp 01:22 Constitutional: The patient appears in no acute distress, alert, awake, cp non-diaphoretic, non-toxic, well developed, well nourished. 01:22 Head/Face: Normocephalic, atraumatic. Eyes: Pupils equal round and reactive to light, cp extra-ocular motions intact. Lids and lashes normal. Conjunctiva and sclera are non-icteric and not injected. Cornea within normal limits. Periorbital areas with no swelling, redness, or edema. ENT: Nares patent. No nasal discharge, no septal abnormalities noted. Tympanic membranes are normal and external auditory canals are clear. Oropharynx with no redness, swelling, or masses, exudates, or evidence of obstruction, uvula midline. Mucous membranes moist. Neck: Trachea midline, no thyromegaly or masses palpated, and no cervical lymphadenopathy. Supple, full range of motion without nuchal rigidity, or vertebral point tenderness. No Meningismus. Chest/axilla: Normal chest wall appearance and motion. Nontender with no deformity. No lesions are appreciated. 01:22 Cardiovascular: Rate: normal, Rhythm: regular, Pulses: Pulses are 2+ in right radial artery and left radial artery. Heart sounds: murmur, not appreciated, rub, not appreciated, Edema: is not appreciated, JVD: is not appreciated. 01:22 Respiratory: the patient does not display signs of respiratory distress, Respirations: normal, no use of accessory muscles, no retractions, no splinting, no tachypnea, labored breathing, is not present, Breath sounds: are clear throughout, no decreased breath sounds, no stridor, no wheezing. 01:22 Abdomen/GI: Inspection: abdomen appears normal, Bowel sounds: active, all quadrants, Palpation: abdomen is soft and non-tender, in all quadrants, rebound tenderness, is not appreciated, voluntary guarding, is not appreciated. 01:22 Back: pain, is absent, ROM is normal. 01:22 Skin: cellulitis, is not appreciated, no rash present. 01:22 Neuro: Orientation: to person, place \\T\\ time. Mentation: is normal, Cerebellar function: is grossly normal, Motor: moves all fours, strength is normal, Sensation: is normal. Vital Signs: 00:53 BP 127 / 80; Pulse 86; Resp 16; Temp 98.6; Pulse Ox 100% on R/A; Weight 68.04 kg (R); ak1 Height 4 ft. 11 in. (149.86 cm) (R); Pain 7/10; 00:53 Body Mass Index 30.30 (68.04 kg, 149.86 cm) ak1 MDM: 00:46 Patient medically screened. cp 01:40 Differential diagnosis: abnormal EKG, acute pericarditis, chest wall pain, cp costochondritis, myocarditis, pericarditis, pneumonia, pneumothorax, pulmonary embolus. 02:57 Data reviewed: vital signs, nurses notes, lab test result(s), EKG, radiologic studies, cp CT scan, plain films, I have discussed the patient's presentation/case with the attending Emergency Department Physician; and as a result, I will discharge patient. 02:57 Test interpretation: by ED physician or midlevel provider: ECG, plain radiologic cp studies, chest xray negative for infiltrates. Counseling: I had a detailed discussion with the patient and/or guardian regarding: the historical points, exam findings, and any diagnostic results supporting the discharge/admit diagnosis, lab results, radiology results, the need for outpatient follow up, a family practitioner, to return to the emergency department if symptoms worsen or persist or if there are any questions or concerns that arise at home. Response to treatment: the patient's symptoms have markedly improved after treatment, and as a result, I will discharge patient. Special discussion: Based on the patient's history, exam, and Dx evaluation, there is no indication for emergent intervention or inpatient Tx. It is understood by the patient/guardian that if the Sx's persist or worsen they need to return immediately for re-evaluation. 03/06 01:15 Order name: Basic Metabolic Panel; Complete Time: 01:57 03/06 01:58 Interpretation: Normal except: CL 108; BUN 19. 03/06 01:15 Order name: CBC with Diff; Complete Time: 01:57 03/06 01:58 Interpretation: Normal except: EOSA 0.9. 03/06 01:15 Order name: LFT's; Complete Time: 01:57 03/06 01:58 Interpretation: Normal except: AST 40; ALT 86; GLOB 4.0; A/G 1.0. 03/06 01:15 Order name: Magnesium; Complete Time: 01:57 03/06 01:15 Order name: NT PRO-BNP; Complete Time: 01:57 03/06 01:15 Order name: PT-INR; Complete Time: 01:57 03/06 01:15 Order name: Troponin (emerg Dept Use Only); Complete Time: 01:57 03/06 01:15 Order name: XRAY Chest (1 view) 03/06 01:15 Order name: EKG; Complete Time: 01:16 03/06 01:06 Order name: CT Head Brain wo Cont 03/06 01:06 Order name: CT Chest For PE Angio 03/06 01:06 Order name: Urine Microscopic Only; Complete Time: 01:57 03/06 02:55 Interpretation: Normal except: UWBC 5-10; URBC 5-10. 03/06 02:02 Order name: Urine Culture EDKY 03/06 01:15 Order name: Cardiac monitoring; Complete Time: 01:16 03/06 01:15 Order name: EKG - Nurse/Tech; Complete Time: 01:16 03/06 01:15 Order name: IV Saline Lock; Complete Time: 01:11 03/06 01:15 Order name: Labs collected and sent; Complete Time: 01:11 03/06 01:15 Order name: O2 Per Protocol; Complete Time: 01:16 03/06 01:15 Order name: O2 Sat Monitoring; Complete Time: 01:16 03/06 01:06 Order name: Urine Dipstick-Ancillary (obtain specimen); Complete Time: 01:11 cp 11 01:06 Order name: Urine Test (obtain specimen); Complete Time: 01:11 cp EC:20 Rate is 83 beats/min. Rhythm is regular. DC interval is normal. QRS interval is normal. cp QT interval is normal. T waves are Inverted in lead III. Interpreted by me. Reviewed by me. Administered Medications: 01:40 Drug: Tylenol 650 mg Route: PO; ak1 03:12 Follow up: Response: No adverse reaction ak1 Disposition: 03/06/19 02:58 Discharged to Home. Impression: Headache, Other chest pain. - Condition is Stable. - Discharge Instructions: Nonspecific Chest Pain, General Headache Without Cause. - Prescriptions for Ibuprofen 800 mg Oral Tablet - take 1 tablet by ORAL route every 8 hours As needed take with food; 30 tablet. - Family Work Release, Medication Reconciliation Form, Thank You Letter, Antibiotic Education, Prescription Opioid Use form. - Follow up: Private Physician; When: 1 - 2 days; Reason: Recheck today's complaints. - Problem is new. - Symptoms have improved. Addendum: 03/07/2019 07:57 Co-signature as Attending Physician, Morris Weinberg MD I agree with the assessment and c goodwin plan of care. Signatures: Dispatcher [employer] EDKY Morris Weinberg MD MD cha Krenek, Amber RN RN ak1 Morris Pineda PA PA cp Corrections: (The following items were deleted from the chart) 03/06 03:16 02:58 03/06/2019 02:58 Discharged to Home. Impression: Headache; Other chest pain. ak1 Condition is Stable. Forms are Medication Reconciliation Form, Thank You Letter, Antibiotic Education, Prescription Opioid Use. Follow up: Private Physician; When: 1 - 2 days; Reason: Recheck today's complaints. Problem is new. Symptoms have improved. cp
[2019-03-06 04:47] VITALS: BP 127/80; TEMP 98.6; O2SAT 100
--- NOTE | 2019-03-06 06:23 | EKG ---
Test Date: 2019-03-06 Test Time: 01:12:21 Cook Dessert: ANÍBAL MEASUREMENT RESULTS: Intervals: Rate: 83 CO: 138 QRSD: 80 QT: 346 QTc: 406 [place]: P: 39 CO: 138 QRS: 29 T: 18 INTERPRETIVE STATEMENTS: Normal sinus rhythm Normal ECG No previous ECG available for comparison Electronically Signed On 03-06-19 06:22:12 COMPUTING TUTOR by Leonel Garay
--- NOTE | 2019-03-06 11:49 | RAD REPORT ---
EXAM DESCRIPTION: RAD - Chest Single View - 03/06/2019 1:03 am CLINICAL HISTORY: CHEST PAIN Chest pain. COMPARISON: <Comparisons> FINDINGS: Portable technique limits examination quality. The lungs are grossly clear. The heart is normal in size. No displaced fractures. IMPRESSION: No acute intrathoracic process suspected.
--- NOTE | 2019-03-07 10:06 | RAD REPORT ---
EXAM DESCRIPTION: Head Brain Wo Cont CLINICAL HISTORY: HEADACHE TECHNIQUE: Contiguous axial CT images obtained through the brain October 03 ureteric IV contrast. Ehrring l and sagittal reformatted images were provided. This exam was performed according to our departmental dose-optimization program, which includes autom ated exposure control, adjustment of the mA and/or kV according to patient size and/or use of iterati ve reconstruction technique. COMPARISON: None available for comparison FINDINGS: Brain: No significant white matter changes. No focal mass effect. Beltre-white matter differ entiation is within normal limits. No hemorrhage. Ventricles: No ventriculomegaly or midline shift. Extra-axial spaces: No extra-axial collection or hemorrhage. Paranasal sinuses and mastoid air cells: Well-aerated Vessels: Unremarkable Bones: Unremarkable Soft tissues: Unremarkable IMPRESSION: No acute intracranial or extra-axial abnormality. Electronically signed by: Pop Ho MD 03/06/2019 2:37 AM LIQUID FLAVOR COMPOUNDER Due to temporary technical issues with the PACS/Fluency reporting system, reports are being signed by the in house radiologist as a courtesy to ensure prompt reporting. The interpreting radiologist is f ully responsible for the content of the report.
--- NOTE | 2019-03-07 10:07 | RAD REPORT ---
EXAM DESCRIPTION: CT chest angiography with intravenous contrast CLINICAL HISTORY: 23-year-old female with chest pain. TECHNIQUE: Following the administration of intravenous contrast, multiple high-resolution axial imag es of the chest were performed followed by sagittal and coronal reconstructed images. No MIP images w ere performed. The CT study is performed according to ALARA (as low as reasonably achievable) or ALAR A/IMAGE GENTLY, with automatic adjustment of mA and/or kV according to patient size. Performed on: 03/06/2019 at 2:03 AM COMPARISON: None FINDINGS: There is satisfactory visualization and contrast opacification of pulmonary arteries. No definite intra-arterial filling defects are identified to suggest acute or chronic pulmonary embolis m. The thoracic aorta is normal in caliber and contour without evidence of aneurysm or dissection. The lungs are well expanded and are clear. There is no evidence of a pneumothorax. There are no pleur al effusions. The heart is normal in size. There is no pericardial effusion. There is no evidence of hilar, mediastinal or axillary lymphadenopathy. No acute osseous abnormality is identified. The visualized upper abdominal structures are unremarkable. IMPRESSION: 1. No CT evidence to suggest acute or chronic pulmonary embolism, aortic aneurysm or aor tic dissection. 2. No evidence of acute intrathoracic disease. Electronically signed by: Caroline Cerda DO 03/06/2019 2:42 AM QUARTER TRIMMER Due to temporary technical issues with the PACS/Fluency reporting system, reports are being signed by the in house radiologist as a courtesy to ensure prompt reporting. The interpreting radiologist is f ully responsible for the content of the report.
== END 2019-03-06 03:16 | disposition home or self-care (01) ==
LOC: ER 00:28
DX: R07.89 Other chest pain (principal); R51 Headache
CPT/HCPCS: 93005; 87088; 85025; 87086; 80048; 36415; 83735; 85610; 80076; 81015; 84484; 83880; 70450; 71275; 71045; 99284; Q9967

== ENCOUNTER 2020-04-15 19:13 | Emergency (ER) | payer BC, OTHER, SELFPAY ==
--- OUTSIDE RECORDS SUMMARY | 2020-04-15 19:16 | XMS REPORT | Continuity of Care Document ---
:[address] [facility] t Address [address] [place] [address] Care Team Providers Name Role Phone Doctor Unassigned, Name Attending Clinician Unavailable Devi Lewis Attending Clinician Problems This patient has no known problems. Allergies, Adverse Reactions, Alerts This patient has no known allergies or adverse reactions. Medications This patient has no known medications. Procedures This patient has no known procedures. Encounters Start End Encounter Admission Attending Care Care Encounter Source Date/Time Date/Time Type Type Clinicians Facility Department ID 2019-03-21 2019-03-21 Orders Doctor MARLENE [id number] 00:00:00 00:00:00 Only Unassigned, DEE DEE [id number] [place] [facility] [id number] 2019-01-18 2019-01-18 Routine BETO Oquendo [id number] 11:00:42 11:40:36 Agnie Quinonez CYANIDE POT HARDENER [id number] Visit [facility] [id number] MATERNAL [id number] & CHILD [address] [place] [address] Results This patient has no known results.
[2020-04-15 21:12] LABS: Absolute Lymphocytes (CBC) 2.4 K/uL (0.7-4.9); Basophils % 0.5 % (0-1.3); Hematocrit 41.6 % (36.0-45.0); Lymphocytes % 26.4 % (15.3-44.8); MPV 8.7 fL (7.6-11.3); RBC Red Blood Cell Count 4.84 M/uL (3.86-4.86)
[2020-04-15 21:16] LABS: Urine Blood 2+ (NEG); Urine Glucose NEGATIVE (NEG); Urine Protein NEGATIVE (NEG); Urine Specific Gravity >1.030 (1.005-1.030)
[2020-04-15 21:21] LABS: BUN Blood Urea Nitrogen 12 mg/dL (7-18); Bicarbonate 27 mmol/L (21-32); Glucose Level 84 mg/dL (74-106); Potassium 3.7 mmol/L (3.5-5.1); Sodium Level 141 mmol/L (136-145)
--- NOTE | 2020-04-15 23:20 | EDPHYS ---
Physician Documentation [facility] Name: Marissa Hernandez Age: 24 yrs Sex: Female : 1995 Arrival Date: 04/15/2020 Time: 19:16 Bed 4 Private MD: ED Physician Brett Parrish HPI: 04/15 20:52 This 24 yrs old Female presents to ER via Ambulatory with complaints of mh7 Vaginal Bleeding. 20:52 The patient presents with vaginal bleeding that is moderate. Onset: The mh7 symptoms/episode began/occurred. 20:54 Onset: The symptoms/episode began/occurred yesterday, Intermittent for 2 months. mh7 Modifying factors: The symptoms are alleviated by nothing, the symptoms are aggravated by nothing. 21:08 Associated signs and symptoms: Pertinent positives: cramping, vaginal bleeding, lower mh7 abdominal pain, lower back pain, Pertinent negatives: constipation, diarrhea, dyspareunia, dysuria, fever, hematuria, nausea, urinary frequency, vaginal discharge, vomiting. Severity of symptoms: At their worst the symptoms were moderate, yesterday, in the emergency department the symptoms have improved, moderately. 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 - Social history:: Smoking status: Patient denies any tobacco usage or history of. ROS: 21:08 Constitutional: Negative for fever, chills, and weight loss, Eyes: Negative for injury, mh7 pain, redness, and discharge, ENT: Negative for injury, pain, and discharge, Neck: Negative for injury, pain, and swelling, Cardiovascular: Negative for chest pain, palpitations, and edema, Respiratory: Negative for shortness of breath, cough, wheezing, and pleuritic chest pain, MS/Extremity: Negative for injury and deformity, Skin: Negative for injury, rash, and discoloration, Neuro: Negative for headache, weakness, numbness, tingling, and seizure, Psych: Negative for depression, anxiety, suicide ideation, homicidal ideation, and hallucinations, Allergy/Immunology: Negative for hives, rash, and allergies, Endocrine: Negative for neck swelling, polydipsia, polyuria, polyphagia, and marked weight changes, Hematologic/Lymphatic: Negative for swollen nodes, abnormal bleeding, and unusual bruising. Exam: 21:08 Constitutional: This is a well developed, well nourished patient who is awake, alert, mh7 and in no acute distress. Head/Face: Normocephalic, atraumatic. Eyes: Pupils equal round and reactive to light, extra-ocular motions intact. Lids and lashes normal. Conjunctiva and sclera are non-icteric and not injected. Cornea within normal limits. Periorbital areas with no swelling, redness, or edema. Neck: Trachea midline, no thyromegaly or masses palpated, and no cervical lymphadenopathy. Supple, full range of motion without nuchal rigidity, or vertebral point tenderness. No Meningismus. Chest/axilla: Normal chest wall appearance and motion. Nontender with no deformity. No lesions are appreciated. Cardiovascular: Regular rate and rhythm with a normal S1 and S2. No gallops, murmurs, or rubs. Normal PMI, no JVD. No pulse deficits. Respiratory: Lungs have equal breath sounds bilaterally, clear to auscultation and percussion. No rales, rhonchi or wheezes noted. No increased work of breathing, no retractions or nasal flaring. 21:58 Back: No spinal tenderness. No costovertebral tenderness. Full range of motion. mh7 Skin: Warm, dry with normal turgor. Normal color with no rashes, no lesions, and no evidence of cellulitis. MS/ Extremity: Pulses equal, no cyanosis. Neurovascular intact. Full, normal range of motion. Neuro: Awake and alert, GCS 15, oriented to person, place, time, and situation. Cranial nerves II-XII grossly intact. Motor strength 5/5 in all extremities. Sensory grossly intact. Cerebellar exam normal. Normal gait. Psych: Awake, alert, with orientation to person, place and time. Behavior, mood, and affect are within normal limits. 21:58 Abdomen/GI: Inspection: abdomen appears normal, Bowel sounds: normal, in all quadrants, Palpation: moderate abdominal tenderness, in the suprapubic area, right lower quadrant and left lower quadrant, Rectal exam: the exam is deferred, because of patient request, Indicators: McBurney's point is not tender, Gutierrez's sign is negative, Rovsing's sign is negative, Obturator sign is negative, Psoas sign is negative, Liver: no appreciated palpable abnormalities, Hernia: not appreciated. 23:21 : CVA tenderness, is absent, Pelvic Exam: The exam is refused by the [facility] patient/guardian. The risks and consequences are understood by the patient, Bladder: tenderness, that is moderate. Vital Signs: 19:29 BP 115 / 78; Pulse 80; Resp 16 S; Temp 98.1(TE); Pulse Ox 99% on R/A; Weight 63.5 kg ca1 (R); Height 4 ft. 11 in. (149.86 cm) (R); Pain 0/10; 21:00 BP 110 / 68; Pulse 72; Resp 16; Pulse Ox 100% ; rv 21:31 BP 106 / 73; Pulse 81; Resp 17; Pulse Ox 100% on R/A; rv 22:00 BP 111 / 70; Pulse 71; Resp 18; Pulse Ox 100% on R/A; ea 23:33 BP 112 / 76; Pulse 72; Resp 16; Temp 98; Pulse Ox 100% on R/A; rv 19:29 Body Mass Index 28.28 (63.50 kg, 149.86 cm) ca1 MDM: 23:15 Differential diagnosis: appendicitis, ectopic , kidney stone, [facility] menometrorrhagia, menorrhea, ovarian cyst, ruptured ectopic , uterine fibroids, urinary tract infection, Vaginal Bleeding. Data reviewed: vital signs, nurses notes, old medical records, lab test result(s), CBC, electrolytes, urinalysis, radiologic studies, CT scan. Data interpreted: Pulse oximetry: on room air is 100 %. Interpretation: normal. Counseling: I had a detailed discussion with the patient and/or guardian regarding: the historical points, exam findings, and any diagnostic results supporting the discharge/admit diagnosis, lab results, radiology results, the need for outpatient follow up, an OB/Gyne specialist, to return to the emergency department if symptoms worsen or persist or if there are any questions or concerns that arise at home. Response to treatment: the patient's symptoms have markedly improved after treatment. Refusal of service: The patient/guardian displays adequate decision making capability and despite a detailed discussion of alternatives, benefits, risks, and consequences refuses: Medications. 23:19 Patient medically screened. [facility] 04/15 20:38 Order name: Abo/rh Typing; Complete Time: 21:35 [facility] 04/15 20:38 Order name: Basic Metabolic Panel; Complete Time: 21:35 [facility] 04/15 20:38 Order name: CBC with Diff; Complete Time: 21:35 [facility] 04/15 21:06 Order name: Urine --Ancillary (enter results); Complete Time: 21:35 tt3 04/15 21:06 Order name: Urine Dipstick--Ancillary (enter results); Complete Time: 21:35 3 04/15 21:47 Order name: CT Abd/Pelvis - IV Contrast Only [facility] 04/15 20:38 Order name: IV Saline Lock; Complete Time: 20:56 [facility] 04/15 20:38 Order name: Labs collected and sent; Complete Time: 20:56 [facility] 04/15 20:38 Order name: NPO; Complete Time: 20:56 [facility] 04/15 20:38 Order name: Urine Dipstick-Ancillary (obtain specimen); Complete Time: 20:56 [facility] 04/15 20:38 Order name: Urine Test (obtain specimen); Complete Time: 20:56 7 Administered Medications: No medications were administered Disposition: 04/15/20 23:19 Discharged to Home. Impression: Vaginal Bleeding, Ovarian Cyst. - Condition is Stable. - Discharge Instructions: Ovarian Cyst, [id number], Metrorrhagia, [id number]. - Medication Reconciliation Form, Thank You Letter, Antibiotic Education, Prescription Opioid Use form. - Family Work Release (04/15/20 23:37). dm5 - Work release form (04/15/20 23:36). tt3 - Follow up: Private Physician; When: 1 - 2 days; Reason: Worsening of condition, Recheck today's complaints, Continuance of care, Re-evaluation by your physician. Follow up: Shelia Breaux MD; When: 1 - 2 days; Reason: Worsening of condition, Recheck today's complaints. - Problem is an ongoing problem. - Symptoms have improved. Signatures: Dispatcher [employer] Onofre Addison RN RN Jennifer Doe RN RN ca1 Brett Parrish MD MD 7 Libby Beth RN5 Masood Barton tt3 Corrections: (The following items were deleted from the chart) 20:55 20:54 Associated signs and symptoms: Pertinent positives: mh7 mh7 21:10 20:54 Associated signs and symptoms: Pertinent positives: mh7 mh7 23:34 23:19 04/15/2020 23:19 Discharged to Home. Impression: Vaginal Bleeding; Ovarian Cyst. rv Condition is Stable. Forms are Medication Reconciliation Form, Thank You Letter, Antibiotic Education, Prescription Opioid Use. Follow up: Private Physician; When: 1 - 2 days; Reason: Worsening of condition, Recheck today's complaints, Continuance of care, Re-evaluation by your physician. Follow up: Shelia Breaux; When: 1 - 2 days; Reason: Worsening of condition, Recheck today's complaints. Problem is an ongoing problem. Symptoms have improved. [facility]
--- NOTE | 2020-04-15 23:20 | ER ---
Nurse's Notes [facility] Name: Marissa Hernandez Age: 24 yrs Sex: Female : 1995 Arrival Date: 04/15/2020 Time: 19:16 Bed 4 Private MD: Diagnosis: Vaginal Bleeding;Ovarian Cyst Presentation: 04/15 19:29 Chief complaint: Patient states: Since Mid February, I have been having my period ever 2 ca1 weeks. When I get my period, I get low back pain, low abdominal pain, headaches, and bleeding is heavy in the 1st 3 days. The last time I had a period, was on Apr 03 - , and now I am having a menstrual period again. Coronavirus screen: Client denies travel out of the [place] in the last 14 days. At this time, the client does not indicate any symptoms associated with coronavirus-19. Ebola Screen: Patient negative for fever greater than or equal to 101.5 degrees Fahrenheit, and additional compatible Ebola Virus Disease symptoms Patient denies exposure to infectious person. Patient denies travel to an Ebola-affected area in the 21 days before illness onset. No symptoms or risks identified at this time. Initial Sepsis Screen: Does the patient meet any 2 criteria? No. Patient's initial sepsis screen is negative. Does the patient have a suspected source of infection? No. Patient's initial sepsis screen is negative. Risk Assessment: Do you want to hurt yourself or someone else? Patient reports no desire to harm self or others. Onset of symptoms was April 15, 2020. 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 - Social history:: Smoking status: Patient denies any tobacco usage or history of. Screenin:30 Abuse screen: Denies threats or abuse. Denies injuries from another. Nutritional rv screening: No deficits noted. Tuberculosis screening: No symptoms or risk factors identified. Fall Risk None identified. Assessment: 20:45 General: Appears comfortable, Behavior is calm, cooperative. rv 20:45 Pain: Denies pain. Neuro: Level of Consciousness is awake, alert, obeys commands, rv Oriented to person, place, time, situation. Cardiovascular: Patient's skin is warm and dry. Respiratory: Airway is patent Respiratory effort is even, unlabored. GI: Abdomen is flat. : Urine is clear, Reports vaginal bleeding that is spotty. Derm: Skin is intact. 22:47 Reassessment: Patient and/or family updated on plan of care and expected duration. Pain ea level reassessed. Patient is alert, oriented x 3, equal unlabored respirations, skin warm/dry/pink. Pt returned from CT. Vital Signs: 19:29 BP 115 / 78; Pulse 80; Resp 16 S; Temp 98.1(TE); Pulse Ox 99% on R/A; Weight 63.5 kg ca1 (R); Height 4 ft. 11 in. (149.86 cm) (R); Pain 0/10; 21:00 BP 110 / 68; Pulse 72; Resp 16; Pulse Ox 100% ; rv 21:31 BP 106 / 73; Pulse 81; Resp 17; Pulse Ox 100% on R/A; rv 22:00 BP 111 / 70; Pulse 71; Resp 18; Pulse Ox 100% on R/A; ea 23:33 BP 112 / 76; Pulse 72; Resp 16; Temp 98; Pulse Ox 100% on R/A; rv 19:29 Body Mass Index 28.28 (63.50 kg, 149.86 cm) ca1 ED Course: 19:16 Patient arrived in ED. am2 19:32 Triage completed. ca1 19:32 Arm band placed on right wrist. ca1 20:29 Brett Parrish MD is Attending Physician. mh7 20:35 Onofre Hidalgo, JUAN CARLOS is Primary Nurse. rv 20:45 Inserted saline lock: 20 gauge in left antecubital area, using aseptic technique. Blood rv collected. 20:45 Initial lab(s) drawn, by me, sent to lab. rv 21:30 Patient has correct armband on for positive identification. Pulse ox on. NIBP on. rv 22:48 CT Abd/Pelvis - IV Contrast Only In Process Unspecified. EDMS 23:18 Shelia Breaux MD is Referral Physician. [facility] 23:33 No provider procedures requiring assistance completed. IV discontinued, intact, rv bleeding controlled, No redness/swelling at site. Pressure dressing applied. Administered Medications: No medications were administered Outcome: 23:19 Discharge ordered by . [facility] 23:34 Discharged to home ambulatory. rv 23:34 Condition: good 23:34 Discharge instructions given to patient, Instructed on discharge instructions, follow up and referral plans. Demonstrated understanding of instructions, follow-up care. 23:34 Patient left the ED. rv Signatures: Dispatcher [employer] EDMS Elicia Fitzpatrick am2 Mindy Tabor RN RN Onofre Wise RN RN Jennifer Doe RN Brett Bailey MD MD [facility]
--- NOTE | 2020-04-17 09:44 | RAD REPORT ---
EXAM DESCRIPTION: CT - Abdomen Pelvis W Contrast - 04/16/2020 4:11 am CLINICAL HISTORY: 24 years Female ABD PAIN TECHNIQUE: Contiguous axial images obtained through the abdomen and pelvis following intravenous con trast administration. Coronal and sagittal reformatted images provided. This CT exam was performed according to our departmental dose-optimization program, which includes on e or more of the following dose reduction techniques: automated exposure control, adjustment of the m A and/or kV according to patient size, and/or use of iterative reconstruction technique. COMPARISON: No prior exams provided for comparison. FINDINGS: The appendix is normal. There is no bowel inflammation, obstruction, free intraperitoneal air, or abdominal ascites. Minimal bibasilar atelectasis. The liver, biliary tree, gallbladder, pancreas, spleen, adrenal glands , kidneys, urinary bladder, and osseous structures are unremarkable. There is a 2.3 cm simple-appearing right ovarian cyst. This does not require follow-up. Normal left o vary and uterus. Trace physiologic free fluid in the cul-de-sac. IMPRESSION: Normal appendix. No acute abdominal or pelvic abnormalities. Electronically signed by: Dayna Corona MD 04/15/2020 10:54 PM SURGEON PARTNER Due to temporary technical issues with the PACS/Fluency reporting system, reports are being signed by the in house radiologist without review as a courtesy to ensure prompt reporting. The interpreting r adiologist is fully responsible for the content of the report.
[2020-04-19 05:16] VITALS: O2SAT 100
[2020-04-19 05:20] VITALS: BP 112/76; TEMP 98
== END 2020-04-15 23:34 | disposition home or self-care (01) ==
LOC: ER 19:13
DX: N83.209 Unspecified ovarian cyst, unspecified side (principal)
CPT/HCPCS: 36415; 74177; 80048; 81003; 81025; 85025; 86900; 86901; 99284; Q9967

== ENCOUNTER 2021-02-25 12:40 | Emergency (ER) | payer OTHER ==
[2021-02-25 14:06] LABS: Absolute Lymphocytes (CBC) 1.3 K/uL (0.7-4.9); Basophils % 0.2 % (0-1.3); Lymphocytes % 15.3 % (15.3-44.8); RBC Red Blood Cell Count 4.84 M/uL (3.86-4.86)
[2021-02-25 14:24] LABS: ALT/SGPT 28 U/L (12-78); AST/SGOT 16 U/L (15-37); Albumin 4.2 g/dL (3.4-5.0); Alkaline Phosphatase 73 U/L (45-117); BUN Blood Urea Nitrogen 10 mg/dL (7-18); Bicarbonate 28 mmol/L (21-32); Bilirubin Direct 0.1 mg/dL (0-0.2); Bilirubin Total 0.6 mg/dL (0.2-1.0); Glucose Level 88 mg/dL (74-106); Lipase 73 U/L (73-393); Protein, Total 8.4 g/dL (6.4-8.2); Sodium Level 142 mmol/L (136-145)
[2021-02-25] MEDS ORDERED: MORPHINE 4 MG/ML SYR ONE (14:27)
[2021-02-25] MEDS ORDERED: ONDANSETRON 4 MG/2 ML VIAL ONE (14:28)
[2021-02-25] MEDS ORDERED: NA CHLORIDE 0.9% 1,000 ML ONE (14:28)
[2021-02-25 15:12] LABS: Urine Blood Negative (Negative); Urine Glucose Negative (Negative); Urine Protein Negative (Negative); Urine Specific Gravity 1.025 (1.005-1.030)
--- NOTE | 2021-02-25 15:51 | RAD REPORT ---
EXAM DESCRIPTION: CT - Abdomen Pelvis W Contrast - 02/25/2021 3:26 pm CLINICAL HISTORY: Abdominal pain COMPARISON: 2019 TECHNIQUE: Computed axial tomography of the abdomen pelvis was obtained. 100 cc Isovue-300 was admin istered intravenously. Oral contrast was not requested which limits evaluation of bowel and appendix. All CT scans are performed using dose optimization technique as appropriate and may include automated exposure control or mA/KV adjustment according to patient size. FINDINGS: The liver, spleen, pancreas, adrenal and kidneys appear unremarkable. There is no evidence of diverticulitis. Normal appendix Small umbilical hernia No adnexal mass IMPRESSION: No acute abnormality is displayed.
[2021-02-25 16:03] LABS: Urine Bacteria <20 /HPF (<20); Urine Mucus MOD /HPF (NONE SEEN); Urine RBC NONE SEEN /HPF (NONE SEEN)
[2021-02-25 16:06] LABS: SARS-COV-2 RT PCR NEGATIVE (NEGATIVE)
[2021-02-25 16:07] LABS: Urine Specific Gravity/Preg 1.025 (1.005-1.030)
--- NOTE | 2021-02-25 16:19 | ER ---
Nurse's Notes [facility] Name: Marissa Hernandez Age: 25 yrs Sex: Female : 1995 Arrival Date: 02/25/2021 Time: 12:41 Bed 9 Private MD: Diagnosis: Abdominal pain, unspecified;Vomiting Presentation: 02/25 12:47 Chief complaint: Patient states: NVD that began yesterday. States lower ABD pain. vg1 States vomited 2x yesterday and once today; had 2 episodes of diarrhea yesterday and 2 episodes today. Pt states is unable to hold fluids or food down. Denies burning upon urination or urine frequency/urgency. Coronavirus screen: Vaccine status: Patient reports being unvaccinated. Client denies travel out of the [place] in the last 14 days. Ebola Screen: Patient negative for fever greater than or equal to 101.5 degrees Fahrenheit, and additional compatible Ebola Virus Disease symptoms. Initial Sepsis Screen: Does the patient meet any 2 criteria? No. Patient's initial sepsis screen is negative. Does the patient have a suspected source of infection? No. Patient's initial sepsis screen is negative. Risk Assessment: Do you want to hurt yourself or someone else? Patient reports no desire to harm self or others. Onset of symptoms was February 24, 2021. 12:47 Method Of Arrival: Ambulatory vg1 12:47 Acuity: MAURA 3 vg1 Triage Assessment: 12:50 General: Appears in no apparent distress. comfortable, Behavior is calm, cooperative. vg1 Pain: Complains of pain in right lower quadrant and left lower quadrant Pain currently is 5 out of 10 on a pain scale. Also complains of nausea. GI: Abdomen is round non-distended, Reports diarrhea, nausea, vomiting. 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 - Social history:: Smoking status: Patient denies any tobacco usage or history of. Screenin:37 Abuse screen: Denies threats or abuse. Denies injuries from another. Nutritional jt3 screening: No deficits noted. Tuberculosis screening: No symptoms or risk factors identified. Fall Risk None identified. Assessment: 13:37 General: Appears in no apparent distress. Behavior is calm. GI: Abd is soft Abdomen is jt3 tender to palpation in right lower quadrant and left lower quadrant Pt. endorses diarrhea since last night. Unable to tolerate PO at this time. No apparent distress. 14:21 Reassessment: Patient appears in no apparent distress at this time. No changes from vg1 previously documented assessment. Patient and/or family updated on plan of care and expected duration. Pain level reassessed. Patient is alert, oriented x 3, equal unlabored respirations, skin warm/dry/pink. 15:14 Reassessment: Patient appears in no apparent distress at this time. Patient and/or vg1 family updated on plan of care and expected duration. Pain level reassessed. Patient is alert, oriented x 3, equal unlabored respirations, skin warm/dry/pink. Patient denies pain at this time. 16:44 GI: Bowel sounds present X 4 quads. jt3 Vital Signs: 12:47 BP 123 / 75; Pulse 98; Resp 16; Temp 98.5; Pulse Ox 100% ; Weight 65.77 kg; Height 4 vg1 ft. 11 in. (149.86 cm); Pain 5/10; 15:13 BP 123 / 70; Pulse 90; Resp 16; Pulse Ox 100% ; vg1 16:43 BP 105 / 66; Pulse 85; Resp 16; Pulse Ox 100% ; vg1 12:47 Body Mass Index 29.29 (65.77 kg, 149.86 cm) vg1 ED Course: 12:41 Patient arrived in ED. am2 12:50 Triage completed. vg1 12:50 Arm band placed on. vg1 13:31 Santos Bridges, JUAN CARLOS is Primary Nurse. jt3 13:37 Patient has correct armband on for positive identification. Bed in low position. Call jt3 light in reach. 13:37 No provider procedures requiring assistance completed. jt3 13:50 Inserted saline lock: 22 gauge in left antecubital area, using aseptic technique. Blood vg1 collected. 13:51 Chuy Lee NP is PHCP. pm1 13:51 Bill Mccauley MD is Attending Physician. pm1 14:30 Primary Nurse role handed off by Santos Bridges, JUAN CARLOS vg1 14:30 Sheri Grossman, JUAN CARLOS is Primary Nurse. vg1 15:26 CT Abd/Pelvis - IV Contrast Only In Process Unspecified. EDMS 16:44 IV discontinued. jt3 Administered Medications: 14:03 Drug: NS 0.9% 1000 ml Route: IV; Rate: 1000 ml; Site: left antecubital; vg1 15:12 Follow up: IV Status: Completed infusion; IV Intake: 1000ml vg1 14:04 Drug: Zofran (Ondansetron) 4 mg Route: IVP; Site: left antecubital; vg1 15:12 Follow up: Response: No adverse reaction vg1 14:07 Drug: morphine 4 mg {Note: rass 0.} Route: IVP; Site: left antecubital; vg1 15:12 Follow up: Response: No adverse reaction; Marked relief of symptoms vg1 16:45 Drug: Bentyl (dicyclomine) 20 mg Route: PO; jt3 16:45 Follow up: Response: Medication administered at discharge. jt3 Intake: 15:12 IV: 1000ml; Total: 1000ml. vg1 Outcome: 16:19 Discharge ordered by MD. pm1 16:44 Discharged to home ambulatory. jt3 16:44 Condition: good 16:44 Discharge instructions given to patient. 16:46 Patient left the ED. jt3 Signatures: Dispatcher [employer] EDMS Chuy Lee NP CLINICAL RESOURCE DIRECTOR pm1 Elicia Fitzpatrick am2 Sheri Grossman RN RN vg1 Santos Bridges RN RN jt3 Corrections: (The following items were deleted from the chart) 12:51 12:47 Chief complaint: Patient states: NVD that began yesterday. States lower ABD pain. vg1 Denies burning upon urination or urine frequency/urgency. vg1 12:53 12:47 Chief complaint: Patient states: NVD that began yesterday. States lower ABD pain. vg1 States vomited 2x yesterday and once today; had 2 episodes of diarrhea yesterday and 2 episodes today. Denies burning upon urination or urine frequency/urgency. vg1
--- NOTE | 2021-02-25 16:19 | EDPHYS ---
Physician Documentation [facility] Name: Marissa Hernandez Age: 25 yrs Sex: Female : 1995 Arrival Date: 02/25/2021 Time: 12:41 Bed 9 Private MD: ED Physician Bill Mccauley HPI: 02/25 14:00 This 25 yrs old Female presents to ER via Ambulatory with complaints of pm1 Abdominal Pain. 14:00 The patient presents with abdominal pain that is diffuse. Onset: The symptoms/episode pm1 began/occurred yesterday. The symptoms do not radiate. Associated signs and symptoms: Pertinent positives: nausea and vomiting, Pertinent negatives: chest pain, constipation, diarrhea, dysuria, fever, shortness of breath. The symptoms are described as achy. Modifying factors: The symptoms are alleviated by nothing, the symptoms are aggravated by drinking, food. Severity of pain: in the emergency department the pain is unchanged. The patient has not experienced similar symptoms in the past. The patient has not recently seen a physician. Ate a hamburger at a [employer] that needed to close its kitchen after she finished eating her meal due to improperly cooked food. The people she was eating with got served improperly cooked chicken wings. 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 - Social history:: Smoking status: Patient denies any tobacco usage or history of. ROS: 14:00 Constitutional: Negative for fever, chills, and weight loss, Cardiovascular: Negative pm1 for chest pain, palpitations, and edema, Respiratory: Negative for shortness of breath, cough, wheezing, and pleuritic chest pain. 14:00 MS/Extremity: Negative for injury and deformity, Skin: Negative for injury, rash, and discoloration, Neuro: Negative for headache, weakness, numbness, tingling, and seizure. 14:00 Abdomen/GI: Positive for abdominal pain, nausea and vomiting, Negative for diarrhea, constipation. 14:00 All other systems are negative. Exam: 14:00 Constitutional: This is a well developed, well nourished patient who is awake, alert, pm1 and in no acute distress. Head/Face: Normocephalic, atraumatic. 14:00 Back: No spinal tenderness. No costovertebral tenderness. Full range of motion. Skin: Warm, dry with normal turgor. Normal color with no rashes, no lesions, and no evidence of cellulitis. MS/ Extremity: Pulses equal, no cyanosis. Neurovascular intact. Full, normal range of motion. 14:00 Cardiovascular: Exam negative for acute changes, Rate: normal, Rhythm: regular, Pulses: no pulse deficits are appreciated. 14:00 Respiratory: Exam negative for acute changes, respiratory distress, shortness of breath, Breath sounds: are clear throughout. 14:00 Abdomen/GI: Inspection: abdomen appears normal, Palpation: soft, in all quadrants, mild abdominal tenderness, in the left upper quadrant. 14:00 Neuro: Exam negative for acute changes, Orientation: is normal, Mentation: is normal, Motor: is normal, moves all fours. Vital Signs: 12:47 BP 123 / 75; Pulse 98; Resp 16; Temp 98.5; Pulse Ox 100% ; Weight 65.77 kg; Height 4 vg1 ft. 11 in. (149.86 cm); Pain 5/10; 15:13 BP 123 / 70; Pulse 90; Resp 16; Pulse Ox 100% ; vg1 16:43 BP 105 / 66; Pulse 85; Resp 16; Pulse Ox 100% ; vg1 12:47 Body Mass Index 29.29 (65.77 kg, 149.86 cm) vg1 MDM: 14:09 Patient medically screened. pm1 16:18 Data reviewed: vital signs. Data interpreted: Pulse oximetry: on room air is 100 %. pm1 Interpretation: normal. Counseling: I had a detailed discussion with the patient and/or guardian regarding: the historical points, exam findings, and any diagnostic results supporting the discharge/admit diagnosis, lab results, radiology results, the need for outpatient follow up, a family practitioner, to return to the emergency department if symptoms worsen or persist or if there are any questions or concerns that arise at home. 02/25 13:54 Order name: Basic Metabolic Panel; Complete Time: 15:20 pm1 02/25 13:54 Order name: CBC with Diff; Complete Time: 15:20 pm1 02/25 13:54 Order name: Hepatic Function; Complete Time: 15:20 pm1 02/25 13:54 Order name: Lipase; Complete Time: 15:20 pm1 02/25 13:54 Order name: Urine Microscopic Only; Complete Time: 16:12 pm1 02/25 14:01 Order name: COVID-19/FLU A+B/RSV (Document "Date of Onset" if Symptomatic); Complete ch5 Time: 16:12 02/25 13:54 Order name: IV Saline Lock; Complete Time: 13:55 pm1 02/25 13:59 Order name: CT Abd/Pelvis - IV Contrast Only; Complete Time: 15:52 pm1 02/25 15:12 Order name: Urine Dipstick-Ancillary; Complete Time: 15:20 EDMS 02/25 15:15 Order name: Urine --Ancillary (enter results); Complete Time: 16:12 bd 02/25 13:54 Order name: Labs collected and sent; Complete Time: 13:55 pm1 02/25 13:54 Order name: Urine Dipstick-Ancillary (obtain specimen); Complete Time: 15:12 pm1 02/25 13:56 Order name: Urine Test (obtain specimen); Complete Time: 15:12 pm1 Administered Medications: 14:03 Drug: NS 0.9% 1000 ml Route: IV; Rate: 1000 ml; Site: left antecubital; vg1 15:12 Follow up: IV Status: Completed infusion; IV Intake: 1000ml vg1 14:04 Drug: Zofran (Ondansetron) 4 mg Route: IVP; Site: left antecubital; vg1 15:12 Follow up: Response: No adverse reaction vg1 14:07 Drug: morphine 4 mg {Note: rass 0.} Route: IVP; Site: left antecubital; vg1 15:12 Follow up: Response: No adverse reaction; Marked relief of symptoms vg1 16:45 Drug: Bentyl (dicyclomine) 20 mg Route: PO; jt3 16:45 Follow up: Response: Medication administered at discharge. jt3 Disposition: 02/26 08:56 Co-signature as Attending Physician, Bill Mccauley MD I agree with the assessment and sp3 plan of care. Disposition Summary: 02/25/21 16:19 Discharge Ordered Location: Home pm1 Problem: new pm1 Symptoms: have improved pm1 Condition: Stable pm1 Diagnosis - Abdominal pain, unspecified pm1 - Vomiting pm1 Followup: pm1 - With: Emergency Department - When: As needed - Reason: Worsening of condition Followup: pm1 - With: Private Physician - When: 2 - 3 days - Reason: Recheck today's complaints, Continuance of care, Re-evaluation by your physician Discharge Instructions: - Discharge Summary Sheet pm1 - Abdominal Pain, Adult pm1 - Food Poisoning pm1 - Nausea and Vomiting, Adult pm1 Forms: - Medication Reconciliation Form pm1 - Thank You Letter pm1 - Antibiotic Education pm1 - Prescription Opioid Use pm1 - Work release form jt3 Prescriptions: - ondansetron 4 mg Oral tablet,disintegrating - place 1 tablet by TRANSLINGUAL route every 8 hours As needed; 12 tablet; pm1 Refills: 0, Product Selection Permitted - dicyclomine 20 mg Oral Tablet - take 1 tablet by ORAL route every 6 hours As needed; 20 tablet; Refills: 0, pm1 Product Selection Permitted Signatures: Dispatcher [employer] EDChuy Pizano NP [employer] pm1 Sheri Grossman RN RN vg1 Bill Mccauley MD MD sp3 Rich Miller, JUAN CARLOS RN ch5 Santos Bridges RN RN jt3
[2021-02-25] MEDS ORDERED: DICYCLOMINE HCL 10 MG CAP ONE ×2 (16:52→17:02)
[2021-02-25 16:55] VITALS: TEMP 98.5; O2SAT 100
[2021-02-25 16:58] VITALS: BP 105/66
== END 2021-02-25 16:46 | disposition home or self-care (01) ==
LOC: ER 12:40
DX: R11.2 Nausea with vomiting, unspecified (principal); Z20.822 Contact with and (suspected) exposure to COVID-19
CPT/HCPCS: 96361; 85025; 80048; 36415; 81025; 80076; 83690; 0241U; 74177; 96375; 96374; 99284; Q9967; J7030; J2405; 81003; 81015

== ENCOUNTER 2021-09-24 20:26 | Emergency (ER) | payer OTHER ==
--- OUTSIDE RECORDS SUMMARY | 2021-09-24 20:45 | XMS REPORT | Continuity of Care Document ---
:1995 Author Organization [facility] t Address [address] [place] [address] Care Team Providers Name Role Phone Nael BA Primary Care Physician Unavailable LAKSHMI HUTTON Attending Clinician Unavailable Doctor Unassigned, Name Attending Clinician Unavailable Lakshmi Hutton MD Attending Clinician Ultrasound Attending Clinician Unavailable Yolanda Allison MD Attending Clinician Yolanda ALLISON Attending Clinician Unavailable Mirza Mcdaniel MD Attending Clinician MIRZA MCDANIEL Attending Clinician Unavailable 5, M[facility] Usg Room Attending Clinician Unavailable Christie Morelos MD Attending Clinician CHRISTIE MORELOS Attending Clinician Unavailable Pob, Lab Main Attending Clinician Unavailable Huebr Hamilton DO Attending Clinician Devi Lewis Attending Clinician Payers Payer Name Policy Type Policy Number Effective Date Expiration Date S leo GREENE [id number] 2016 HEALTH 00:00:00 Problems Condition Condition Condition Status Onset Resolution Last Treating Co mments Source Name Details Category Date Date Treatment Clinician Date Monochorio Monochorio Disease Active U nivers [place] alton 3-17 ity of diam[place]otic [place] 00 Medical gestation gestation Bran ch in second in second trimester trimester Encounter Encounter Disease Active Uni vers for tubal for tubal 3-17 ity of ligation ligation 00:00: [place] counseling counseling 00 Wa dical Branch Previous Previous Disease Active Unive rs 2-16 ity of section section 00:00: [place] [address] Medical Branch High risk High risk Disease Active Uni vers , , 2-16 it y of antepartum antepartum [place] [facility] Pelvic Pelvic Disease Active Univers pressure pressure 2-16 ity of in in 00:00: [place] , , 00 Me dical antepartum antepartum Br anch , , unspecifie unspecifie d d trimester trimester Lump of Lump of Disease Active Univers axilla, axilla, 2-16 ity of left left 00:00: [place] [address] Medical Branch Other Other Disease Active 2018-05 Univers general general 1-25 ity of counseling counseling 00:[place] and advice and advice 00 Me dical for for Branch contracept contracept eliza eliza management management Obesity Obesity Disease Active 2018-05 Univers (BMI (BMI 0-09 ity of 30-39.9) 30-39.9) 00:00: [place] [facility] 24 weeks 24 weeks Disease Active Unive rs gestation gestation 6-29 ity of of of 00:00: [place] 00 [facility] Disease Active Univers contractio contractio 6-29 it y of ns ns 00:00: [place] [address] Medical Branch History of History of Disease Active U nivers miscarriag miscarriag 4-11 it y of e e 00:00: [place] [address] Medical Branch History of History of Disease Active Overview : Univers 4-11 A low ity of section section 00:00: transvers [place] 00 e Medical incision Branch was made 05-21-15 (see scanned records) Supervisio Supervisio Disease Active U nivers n of high n of high 4-11 ity of risk risk 00:00: [place] , , 00 Me dical antepartum antepartum Br anch Allergies, Adverse Reactions, Alerts Allergy Allergy Status Severity Reaction(s) Onset Inactive Treating Comm ents Source Name Type Date Date Clinician NO KNOWN Drug Active Univers ALLERGIE Class ity of [facility] [place] [facility] Social History Social Habit Start Date Stop Date Quantity Comments Source ASSERTION 2021-03-12 University of 00:00:00 [facility] Exposure to 2021-09-01 2021-09-11 Not sure [facility] SARS-CoV-2 00:00:00 14:21:00 [facility] (event) Branch Alcohol intake 2021-09-11 2021-09-11 Current University 00:00:00 00:00:00 non-drinker of [facility] alcohol Branch (finding) Tobacco use and 2014-07-19 2014-07-19 Never used Universit y of exposure 00:00:00 00:00:00 [facility] Sex Ass[birth year] At [birth year] Universit y of 00:00:00 00:00:00 [facility] Smoking Status Start Date Stop Date Source Never smoker [facility] Branch Medications Ordered Filled Start Stop Current Ordering Indication Dosage Frequency Signature Comments Components Source Medication Medication Date Date Medication? Clinician (SIG) Name Name metroNIDAZO 2021- No [id number] 500mg Take 1 Univers LE (FLAGYL) 2-18 - tablet by it y of 500 mg 00:00: 05:59 mouth [place] tablet 00 :00 every 12 Medical (twelve) Branch hours for 7 days. metroNIDAZO 2021- No [id number] 500mg Take 1 Univers LE (FLAGYL) 2-18 - tablet by it y of 500 mg 00:00: 05:59 mouth [place] tablet 00 :00 every 12 Medical (twelve) Branch hours for 7 days. metroNIDAZO 2021- No [id number] 500mg Take 1 Univers LE (FLAGYL) 2-18 - tablet by it y of 500 mg 00:00: 05:59 mouth [place] tablet 00 :00 every 12 Medical (twelve) Branch hours for 7 days. 2018-05 Yes [id number] 1{tbl} Take 1 Univers vitamin 0-10 tablet by ity of w/FA tablet 00:00: mouth [place] 00 daily. Medical Branch ferrous 2018- Yes [id number] 325mg Take 1 Un eric sulfate 325 0-10 tablet by ity of mg (65 mg 00:00: mouth 2 [place] iron) 00 (two) Medical tablet times Branch daily. 2018-05 Yes [id number] 1{tbl} Take 1 Univers vitamin 0-10 tablet by ity of w/FA tablet 00:00: mouth [place] 00 daily. Medical Branch ferrous 2019- Yes [id number] 325mg Take 1 Un eric sulfate 325 0-10 tablet by ity of mg (65 mg 00:00: mouth 2 [place] iron) 00 (two) Medical tablet times Branch daily. 2019- Yes [id number] 1{tbl} Take 1 Univers vitamin 0-10 tablet by ity of w/FA tablet 00:00: mouth [place] 00 daily. Medical Branch ferrous 2018- Yes [id number] 325mg Take 1 Un eric sulfate 325 0-10 tablet by ity of mg (65 mg 00:00: mouth 2 [place] iron) 00 (two) Medical tablet times Branch daily. 2018- Yes [id number] 1{tbl} Take 1 Univers vitamin 0-10 tablet by ity of w/FA tablet 00:00: mouth [place] 00 daily. Medical Branch ferrous 2018- Yes [id number] 325mg Take 1 Un eric sulfate 325 0-10 tablet by ity of mg (65 mg 00:00: mouth 2 [place] iron) 00 (two) Medical tablet times Branch daily. 2018- Yes [id number] 1{tbl} Take 1 Univers vitamin 0-10 tablet by ity of w/FA tablet 00:00: mouth [place] 00 daily. Medical Branch ferrous 2018- Yes [id number] 325mg Take 1 Un eric sulfate 325 0-10 tablet by ity of mg (65 mg 00:00: mouth 2 [place] iron) 00 (two) Medical tablet times Branch daily. 2019- Yes [id number] 1{tbl} Take 1 Univers vitamin 0-10 tablet by ity of w/FA tablet 00:00: mouth [place] 00 daily. Medical Branch ferrous 2019- Yes [id number] 325mg Take 1 Un eric sulfate 325 0-10 tablet by ity of mg (65 mg 00:00: mouth 2 [place] iron) 00 (two) Medical tablet times Branch daily. 2018- Yes [id number] 1{tbl} Take 1 Univers vitamin 0-10 tablet by ity of w/FA tablet 00:00: mouth [place] 00 daily. Medical Branch ferrous 2018- Yes [id number] 325mg Take 1 Un eric sulfate 325 0-10 tablet by ity of mg (65 mg 00:00: mouth 2 [place] iron) 00 (two) Medical tablet times Branch daily. 2019- Yes [id number] 1{tbl} Take 1 Univers vitamin 0-10 tablet by ity of w/FA tablet 00:00: mouth [place] 00 daily. Medical Branch ferrous 2019- Yes [id number] 325mg Take 1 Un eric sulfate 325 0-10 tablet by ity of mg (65 mg 00:00: mouth 2 [place] iron) 00 (two) Medical tablet times Branch daily. 2018-05 Yes [id number] 1{tbl} Take 1 Univers vitamin 0-10 tablet by ity of w/FA tablet 00:00: mouth [place] 00 daily. Medical Branch ferrous 2018- Yes [id number] 325mg Take 1 Un eric sulfate 325 0-10 tablet by ity of mg (65 mg 00:00: mouth 2 [place] iron) 00 (two) Medical tablet times Branch daily. 2018- Yes [id number] 1{tbl} Take 1 Univers vitamin 0-10 tablet by ity of w/FA tablet 00:00: mouth [place] 00 daily. Medical Branch ferrous 2018- Yes [id number] 325mg Take 1 Un eric sulfate 325 0-10 tablet by ity of mg (65 mg 00:00: mouth 2 [place] iron) 00 (two) Medical tablet times Branch daily. 2018- Yes [id number] 1{tbl} Take 1 Univers vitamin 0-10 tablet by ity of w/FA tablet 00:00: mouth [place] 00 daily. Medical Branch ferrous 2019- Yes [id number] 325mg Take 1 Un eric sulfate 325 0-10 tablet by ity of mg (65 mg 00:00: mouth 2 [place] iron) 00 (two) Medical tablet times Branch daily. 2018- Yes [id number] 1{tbl} Take 1 Univers vitamin 0-10 tablet by ity of w/FA tablet 00:00: mouth [place] 00 daily. Medical Branch ferrous 2019- Yes [id number] 325mg Take 1 Un eric sulfate 325 0-10 tablet by ity of mg (65 mg 00:00: mouth 2 [place] iron) 00 (two) Medical tablet times Branch daily. 2018- Yes [id number] 1{tbl} Take 1 Univers vitamin 0-10 tablet by ity of w/FA tablet 00:00: mouth [place] 00 daily. Medical Branch ferrous 2019- Yes [id number] 325mg Take 1 Un eric sulfate 325 0-10 tablet by ity of mg (65 mg 00:00: mouth 2 [place] iron) 00 (two) Medical tablet times Branch daily. 2019- Yes [id number] 1{tbl} Take 1 Univers vitamin 0-10 tablet by ity of w/FA tablet 00:00: mouth [place] 00 daily. Medical Branch ferrous 2018- Yes [id number] 325mg Take 1 Un eric sulfate 325 0-10 tablet by ity of mg (65 mg 00:00: mouth 2 [place] iron) 00 (two) Medical tablet times Branch daily. 2018- Yes [id number] 1{tbl} Take 1 Univers vitamin 0-10 tablet by ity of w/FA tablet 00:00: mouth [place] 00 daily. Medical Branch ferrous 2018- Yes [id number] 325mg Take 1 Un eric sulfate 325 0-10 tablet by ity of mg (65 mg 00:00: mouth 2 [place] iron) 00 (two) Medical tablet times Branch daily. 2018- Yes [id number] 1{tbl} Take 1 Univers vitamin 0-10 tablet by ity of w/FA tablet 00:00: mouth [place] 00 daily. Medical Branch ferrous 2018- Yes [id number] 325mg Take 1 Un erci sulfate 325 0-10 tablet by ity of mg (65 mg 00:00: mouth 2 [place] iron) 00 (two) Medical tablet times Branch daily. 2019- Yes [id number] 1{tbl} Take 1 Univers vitamin 0-10 tablet by ity of w/FA tablet 00:00: mouth [place] 00 daily. Medical Branch ferrous 2018- Yes [id number] 325mg Take 1 Un eric sulfate 325 0-10 tablet by ity of mg (65 mg 00:00: mouth 2 [place] iron) 00 (two) Medical tablet times Branch daily. 2019- Yes [id number] 1{tbl} Take 1 Univers vitamin 0-10 tablet by ity of w/FA tablet 00:00: mouth [place] 00 daily. Medical Branch ferrous 2018- Yes [id number] 325mg Take 1 Un eric sulfate 325 0-10 tablet by ity of mg (65 mg 00:00: mouth 2 [place] iron) 00 (two) Medical tablet times Branch daily. 2019- Yes [id number] 1{tbl} Take 1 Univers vitamin 0-10 tablet by ity of w/FA tablet 00:00: mouth [place] 00 daily. Medical Branch ferrous 2019- Yes [id number] 325mg Take 1 Un eric sulfate 325 0-10 tablet by ity of mg (65 mg 00:00: mouth 2 [place] iron) 00 (two) Medical tablet times Branch daily. 2018- Yes [id number] 1{tbl} Take 1 Univers vitamin 0-10 tablet by ity of w/FA tablet 00:00: mouth [place] 00 daily. Medical Branch ferrous 2018- Yes [id number] 325mg Take 1 Un eric sulfate 325 0-10 tablet by ity of mg (65 mg 00:00: mouth 2 [place] iron) 00 (two) Medical tablet times Branch daily. PNV 67-iron Yes [id number] 1{each} Take 1 Univers ps-folate 4-11 Each by ity of no.1-dha 00:00: mouth [place] (VITAFOL 00 daily. Medical ULTRA) 29 Branch mg iron- 1 mg-200 mg Cap PNV 67-iron Yes [id number] 1{each} Take 1 Univers ps-folate 4-11 Each by ity of no.1-dha 00:00: mouth [place] (VITAFOL 00 daily. Medical ULTRA) 29 Branch mg iron- 1 mg-200 mg Cap PNV 67-iron Yes [id number] 1{each} Take 1 Univers ps-folate 4-11 Each by ity of no.1-dha 00:00: mouth [place] (VITAFOL 00 daily. Medical ULTRA) 29 Branch mg iron- 1 mg-200 mg Cap PNV 67-iron 2018- Yes [id number] 1{each} Take 1 Univers ps-folate 4-11 Each by ity of no.1-dha 00:00: mouth [place] (VITAFOL 00 daily. Medical ULTRA) 29 Branch mg iron- 1 mg-200 mg Cap PNV 67-iron 2018- Yes [id number] 1{each} Take 1 Univers ps-folate 4-11 Each by ity of no.1-dha 00:00: mouth [place] (VITAFOL 00 daily. Medical ULTRA) 29 Branch mg iron- 1 mg-200 mg Cap dicyclomine 2017-0 Yes 20mg Take 1 Univ ers (BENTYL) 20 3-26 tablet by ity of mg tablet 00:00: mouth 4 (four) Medical times Branch daily. ondansetron 2017-0 Yes 4mg Take 1 Univ ers (ZOFRAN, 3-26 tablet by ity of HYDROCHLORI 00:00: mouth [place] DE,) 4 mg 00 every 8 Medical tablet (eight) Branch hours as needed for Nausea and Vomiting (N/V). dicyclomine 2017-0 Yes 20mg Take 1 Univ ers (BENTYL) 20 3-26 tablet by ity of mg tablet 00:00: mouth 4 00 (four) Medical times Branch daily. dicyclomine 2017-0 Yes 20mg Take 1 Univ ers (BENTYL) 20 3-26 tablet by ity of mg tablet 00:00: mouth 4 00 (four) Medical times Branch daily. ondansetron 2017-0 Yes 4mg Take 1 Univ ers (ZOFRAN, 3-26 tablet by ity of HYDROCHLORI 00:00: mouth [place] DE,) 4 mg 00 every 8 Medical tablet (eight) Branch hours as needed for Nausea and Vomiting (N/V). dicyclomine 2017-0 Yes 20mg Take 1 Univ ers (BENTYL) 20 3-26 tablet by ity of mg tablet 00:00: mouth 4 00 (four) Medical times Branch daily. dicyclomine 2017-0 Yes 20mg Take 1 Univ ers (BENTYL) 20 3-26 tablet by ity of mg tablet 00:00: mouth (four) Medical times Branch daily. ondansetron 2017-0 Yes 4mg Take 1 Univ ers (ZOFRAN, 3-26 tablet by ity of HYDROCHLORI 00:00: mouth [place] DE,) 4 mg 00 every 8 Medical tablet (eight) Branch hours as needed for Nausea and Vomiting (N/V). dicyclomine 2017-0 Yes 20mg Take 1 Univ ers (BENTYL) 20 3-26 tablet by ity of mg tablet 00:00: mouth 4 00 (four) Medical times Branch daily. dicyclomine 2017-0 Yes 20mg Take 1 Univ ers (BENTYL) 20 3-26 tablet by ity of mg tablet 00:00: mouth 4 [place] 00 (four) Medical times Branch daily. ondansetron 2017-0 Yes 4mg Take 1 Univ ers (ZOFRAN, 3-26 tablet by ity of HYDROCHLORI 00:00: mouth [place] DE,) 4 mg 00 every 8 Medical tablet (eight) Branch hours as needed for Nausea and Vomiting (N/V). dicyclomine 2017-0 Yes 20mg Take 1 Univ ers (BENTYL) 20 3-26 tablet by ity of mg tablet 00:00: mouth (four) Medical times Branch daily. dicyclomine 2017-0 Yes 20mg Take 1 Univ ers (BENTYL) 20 3-26 tablet by ity of mg tablet 00:00: mouth (four) Medical times Branch daily. ondansetron 2017-0 Yes 4mg Take 1 Univ ers (ZOFRAN, 3-26 tablet by ity of HYDROCHLORI 00:00: mouth [place] DE,) 4 mg 00 every 8 Medical tablet (eight) Branch hours as needed for Nausea and Vomiting (N/V). dicyclomine 2017-0 Yes 20mg Take 1 Univ ers (BENTYL) 20 3-26 tablet by ity of mg tablet 00:00: mouth (four) Medical times Branch daily. Immunizations Ordered Filled Immunization Date Status Comments [facility] Immunization Name Name [facility] 2018-12-01 Completed University of 00:00:00 [facility] 2018-12-01 Completed University of 00:00: [facility] 2018-12-01 Completed University of 00:00: [facility] 2018-12-01 Completed University of 00:00: [facility] 2018-12-01 Completed University of 00:00: [facility] 2018-12-01 Completed University of 00:00: [facility] 2018-12-01 Completed University of 00:00:00 [facility] 2018-12-01 Completed University of 00:00: [facility] 2018-12-01 Completed University of 00:00:00 [facility] 2018-12-01 Completed University of 00:00:00 [facility] 2018-12-01 Completed University of 00:00: [facility] 2018-12-01 Completed University of 00:00:00 [facility] TDAP 2018-12-01 Completed University of 00:00:00 [place] [facility] TDAP 2018-12-01 Completed University of 00:00:00 [place] [facility] TDAP 2018-12-01 Completed University of 00:00:00 [place] [facility] TDAP 2018-12-01 Completed University of 00:00:00 [facility] Branch TDAP 2018-12-01 Completed University of 00:00:00 [place] [facility] TDAP 2018-12-01 Completed University of 00:00:00 [place] [facility] TDAP 2018-12-01 Completed University of 00:00:00 [place] [facility] TDAP 2018-12-01 Completed University of 00:00:00 [place] [facility] TDAP 2018-12-01 Completed University of 00:00:00 [place] [facility] Tdap 2018-12-01 Completed University of 00:00:00 [facility] Branch Tdap 2018-12-01 Completed University of 00:00:00 [facility] Branch Tdap 2018-12-01 Completed University of 00:00:00 [facility] Branch Tdap 2018-12-01 Completed University of 00:00:00 [facility] Branch TDAP 2010-05-04 Completed University of 00:00:00 [facility] Branch TDAP 2010-05-04 Completed University of 00:00:00 [facility] Branch TDAP 2010-05-04 Completed University of 00:00:00 [facility] Branch TDAP 2010-05-04 Completed University of 00:00:00 [facility] Branch TDAP 2010-05-04 Completed University of 00:00:00 [facility] Branch TDAP 2010-05-04 Completed University of 00:00:00 [facility] Branch Tdap 2010-05-04 Completed University of 00:00:00 [facility] Branch TDAP 2010-05-04 Completed University of 00:00:00 [facility] Branch TDAP 2010-05-04 Completed University of 00:00:00 [facility] Branch TDAP 2010-05-04 Completed University of 00:00:00 [place] [facility] TDAP 2010-05-04 Completed University of 00:00:00 [place] [facility] TDAP 2010-05-04 Completed University of 00:00:00 [facility] Branch TDAP 2010-05-04 Completed University of 00:00:00 [facility] Branch TDAP 2010-05-04 Completed University of 00:00:00 [place] [facility] TDAP 2010-05-04 Completed University of 00:00:00 [place] [facility] TDAP 2010-05-04 Completed University of 00:00:00 [place] [facility] TDAP 2010-05-04 Completed University of 00:00:00 [place] [facility] TDAP 2010-05-04 Completed University of 00:00:00 [place] [facility] TDAP 2010-05-04 Completed University of 00:00:00 [place] [facility] TDAP 2010-05-04 Completed University of 00:00:00 [place] [facility] Tdap 2010-05-04 Completed University of 00:00:00 [place] [facility] Tdap 2010-05-04 Completed University of 00:00:00 [place] [facility] Tdap 2010-05-04 Completed University of 00:00:00 [place] [facility] Tdap 2010-05-04 Completed University of 00:00:00 [place] [facility] Tdap 2010-05-04 Completed University of 00:00:00 [facility] Vital Signs Vital Name Observation Time Observation Value Comments Source Systolic blood 2021-09-11 19:48:00 117 mm[Hg] Univer sity of pressure [facility] Diastolic blood 2021-09-11 19:48:00 76 mm[Hg] Unive rsity of pressure [facility] Heart rate 2021-09-11 19:48:00 102 /min [facility] Body temperature 2021-09-11 19:48:00 36.78 Bettina [facility] Respiratory rate 2021-09-11 19:48:00 20 /min [facility] Body height 2021-09-11 19:48:00 149.9 cm [facility] Body weight 2021-09-11 19:48:00 80.74 kg [facility] BMI 2021-09-11 19:48:00 35.95 kg/m2 [facility] Systolic blood 2021-07-18 16:35:00 109 mm[Hg] Univer sity of pressure [facility] Diastolic blood 2021-07-18 16:35:00 69 mm[Hg] Unive rsity of pressure [facility] Heart rate 2021-07-18 16:35:00 98 /min [facility] Body temperature 2021-07-18 16:35:00 36.39 Bettina [facility] ersity of [place] [facility] Respiratory rate 2021-07-18 16:35:00 18 /min Univ ersity of [place] [facility] Body height 2021-07-18 16:35:00 149.9 cm Universi ty of [place] [facility] Body weight 2021-07-18 16:35:00 77.293 kg Universi ty of [place] [facility] BMI 2021-07-18 16:35:00 34.42 kg/m2 Universi ty of [facility] Oxygen saturation in 2021-07-18 16:35:00 100 /min University Arterial blood by [facility] Pulse oximetry Branch Systolic blood 2021-06-19 16:41:00 115 mm[Hg] Univer sity of pressure [place] [facility] Diastolic blood 2021-06-19 16:41:00 79 mm[Hg] Unive rsity of pressure [facility] Heart rate 2021-06-19 16:41:00 93 /min Universi ty of [facility] Body temperature 2021-06-19 16:41:00 36.89 [place] [address] of [facility] Respiratory rate 2021-06-19 16:41:00 18 /min Univ ersity of [place] [facility] Body height 2021-06-19 16:41:00 149.9 cm Universi ty of [place] [facility] [place] Body weight 2021-06-19 16:41:00 73.029 kg Universi ty of [place] [facility] [place] BMI 2021-06-19 16:41:00 32.52 kg/m2 Universi ty of [facility] Systolic blood 2019-01-18 16:16:00 123 mm[Hg] Univer sity of pressure [place] [facility] Diastolic blood 2019-01-18 16:16:00 74 mm[Hg] Unive rsity of pressure [place] [facility] Heart rate 2019-01-18 16:16:00 87 /min Universi ty of [place] [facility] Body temperature 2019-01-18 16:16:00 36.72 Bettina Univ ersity of [facility] Branch Respiratory rate 2019-01-18 16:16:00 16 /min Univ ersity of [place] [facility] Body height 2019-01-18 16:16:00 149.9 cm Universi ty of [place] [facility] Body weight 2019-01-18 16:16:00 74.021 kg Universi ty of [place] [facility] BMI 2019-01-18 16:16:00 32.96 kg/m2 Universi ty of [place] [facility] Systolic blood 2019-01-18 16:16:00 123 mm[Hg] Univer sity of pressure [place] [facility] Diastolic blood 2019-01-18 16:16:00 74 mm[Hg] Unive rsity of pressure [place] [facility] Heart rate 2019-01-18 16:16:00 87 /min Universi ty of [place] [facility] Body temperature 2019-01-18 16:16:00 36.72 [place] Univ ersity of [place] [facility] Respiratory rate 2019-01-18 16:16:00 16 /min Univ ersity of [place] [facility] Body height 2019-01-18 16:16:00 149.9 cm Universi ty of [place] [facility] Body weight 2019-01-18 16:16:00 74.021 kg Universi ty of [place] [facility] BMI 2019-01-18 16:16:00 32.96 kg/m2 Universi ty of [place] [facility] Systolic blood 2018-12-27 18:26:00 111 mm[Hg] Univer sity of pressure [place] [facility] Diastolic blood 2018-12-27 18:26:00 69 mm[Hg] Unive rsity of pressure [place] [facility] Heart rate 2018-12-27 18:26:00 120 /min Universi ty of [place] [facility] Body temperature 2018-12-27 18:26:00 36.11 [place] Univ ersity of [place] [facility] Respiratory rate 2018-12-27 18:26:00 16 /min Univ ersity of [place] [facility] Body height 2018-12-27 18:26:00 149.9 cm Universi ty of [place] [facility] Body weight 2018-12-27 18:26:00 70.875 kg Universi ty of [place] [facility] BMI 2018-12-27 18:26:00 31.56 kg/m2 Universi ty of [place] [facility] Systolic blood 2018-12-01 14:41:00 114 mm[Hg] Univer sity of pressure [place] [facility] Diastolic blood 2018-12-01 14:41:00 65 mm[Hg] Unive rsity of pressure [place] [facility] Heart rate 2018-12-01 14:41:00 83 /min Universi ty of [place] [facility] Body temperature 2018-12-01 14:41:00 36.11 [place] Univ ersity of [place] [facility] Respiratory rate 2018-12-01 14:41:00 16 /min [facility] Body height 2018-12-01 14:41:00 149.9 cm [facility] Body weight 2018-12-01 14:41:00 69.457 kg [facility] BMI 2018-12-01 14:41:00 30.93 kg/m2 [facility] Procedures Procedure Date / Time Performing Clinician Source Performed CONSENT/REFUSAL FOR 2021-09-24 17:55:32 Doctor Unassigned, No [facility] [place] DIAGNOSIS AND TREATMENT [facility] ASSIGNMENT OF BENEFITS 2021-09-24 17:55:21 Doctor Unassigned, No [facility] POCT URINALYSIS W/O 2021-09-11 19:53:00 Dino Hutton [facility] SPECIFIC [facility] SECOND AND THIRD 2021-09-11 18:30:00 Dino Hutton [facility] TRIMESTER ULTRASOUND Medical Bra [facility] STERILIZATION CONSENT 2021-09-11 05:01:00 Doctor Unassigned, No [facility] POCT URINALYSIS W/O 2021-09-11 00:00:00 Dino Hutton [facility] SPECIFIC [facility] POCT URINALYSIS W/O 2021-07-18 16:38:00 Dino Hutton [facility] SPECIFIC [facility] SCANNED LAB RESULTS 2021-07-18 05:01:00 Doctor [facility]igned, No [facility] SECOND AND THIRD 2021-07-16 17:19:00 Dino Hutton [facility] TRIMESTER ULTRASOUND Medical Bra [facility] SECOND AND THIRD 2021-07-16 17:03:00 Dino [facility] TRIMESTER ULTRASOUND Medical [facility] >14 WEEKS [place] 2021-06-19 19:21:[address] [facility] ASSIGNMENT OF BENEFITS 2021-06-19 16:18:24 Doctor Unassigned, No [facility] POCT TEST 2021-06-19 00:00:00 Dino Hutton [facility] POCT URINALYSIS W/O 2021-06-19 00:00:00 Dino Hutton [facility] SPECIFIC [facility] [id number] CONSENT 2019-03-21 06:01:00 Doctor Kalen, Sugar Kellye [facility] POCT URINALYSIS 2019-01-18 16:17:00 Angie Oquendo [facility] POCT URINALYSIS 2018-12-27 18:28:00 Angie Oquendo [facility] TDAP VACCINE, >11 YRS, 2018-12-01 14:48:32 Angie Oquendo [facility] POCT URINALYSIS 2018-12-01 14:47:00 Angie Oquendo [facility] Encounters Start End Encounter Admission Attending Care Care Encounter Source Date/Time Date/Time Type Type Clinicians Facility Department ID 2021-10-09 2021-10-09 Outpatient P [facility] [id number] Univers 13:30:00 13:30:00 [id number] [facility] 2021-09-25 2021-09-25 Outpatient R BRENNEN [facility] [id number] 5Q-20 Univers 15:45:00 15:45:00 [id number] [facility] 2021-09-25 2021-09-25 Outpatient R BRENNEN [facility] [id number] Univers 15:45:00 15:45:00 it[facility] 2021-09-24 2021-09-24 Outpatient R BRENNEN [facility] [id number] [id number] Univers 13:30:00 13:30:00 [id number] it[facility] 2021-09-24 2021-09-24 Outpatient P BRENNEN DINO [facility] [id number] Univers 12:55:55 12:55:55 ity [facility] 2021-09-24 2021-09-24 Orders Doctor ROSARIO 1.2.840.114 [id number] Univers 00:00:00 00:00:00 Only Unassigned, DEE DEE 350.1.13.10 ity [facility] 4.2.7.2.686 Michael as [phone] [address] 2021-09-11 2021-09-11 Outpatient R BRENNEN DINO [facility] [id number] Univers 15:45:00 15:45:00 [id number] it[facility] 2021-09-11 2021-09-11 Routine Dino Hutton [facility] [id number] Univers 15:45:00 15:45:00 Cam CLAYTON [id number] ity of [id number] [phone] Wa dical [address] 2021-09-11 2021-09-11 Abrasive Grader [facility] 1.2 .840.114 [id number] Univers 14:00:00 15:15:00 Visit Jacek Allison LUMBER TALLIER [id number] ity of [facility] [id number] Michael as MATERNAL [phone] [facility] ical & CHILD [address] [place] [address] 2021-09-11 2021-09-11 Outpatient P KAR [facility] [id number] Univers 14:00:00 14:00:00 [facility] 2021-09-11 2021-09-11 Orders Doctor MARLENE 1.2.840.114 [id number] Univers 00:00:00 00:00:00 Only Unassigned, DEE DEE [id number] ity of [place] [facility] [id number] Michael as [phone] [address] 2021-08-28 2021-08-28 Abrasive Grader Ultrasound, [facility] 1.2 .840.114 [id number] Univers 13:30:00 14:45:25 Visit Georges Mcdaniel LUMBER TALLIER 350.1.13.1 0 ity of [facility] [id number] Michael as MATERNAL [phone] [facility] & CHILD [address] [place] [address] 2021-08-28 2021-08-28 Outpatient P [facility] [id number] Univers 13:30:00 13:30:00 [id number] ity [facility] 2021-08-28 2021-08-28 Outpatient P VIOLETA [facility] [id number] Univers 13:30:00 13:30:[address] of [facility] 2021-08-26 2021-08-26 Outpatient R DINO HUTTON [facility] [id number] 5Q-20 Univers 16:15:00 16:15:[id number] [facility] 2021-08-26 2021-08-26 Outpatient R BRENNEN [facility] [id number] Univers 16:15:00 16:15:00 ity [facility] 2021-08-22 2021-08-22 [facility] [id number]-20 Univers 00:00:00 00:00:00 [id number] it[facility] 2021-08-14 2021-08-14 Outpatient R BRENNEN [facility] [id number] 5Q-20 Univers 15:45:00 15:45:00 [id number] ity [facility] 2021-08-14 2021-08-14 Outpatient P BRENNEN [facility] [id number] Univers 13:30:00 13:30:[address] [facility] 2021-07-18 2021-07-18 Outpatient R BRENNEN [facility] [id number] Univers 11:15:00 12:21:01 ity [facility] 2021-07-18 2021-07-18 Routine Brennen [facility] [id number] Univers 11:15:00 12:21:01 Cam LAURIE 350.1.13.10 ity of [id number] [phone] Wa dical [address] 2021-07-18 2021-07-18 Outpatient [facility] [id number] 5Q-20 Univers 11:15:00 11:15:00 [id number] ity [facility] 2021-07-18 2021-07-18 Orders Doctor ROSARIO 1.2.840.114 [id number] Univers 00:00:00 00:00:00 Only Unassigned, DEE DEE 350.1.13.10 ity of [place] [facility] [id number] Michael as [phone] [address] 2021-07-16 2021-07-16 Abrasive Grader 5, [facility] Usg Room UNIVERSIT 1 .2.840.114 [id number] Univers 10:00:00 12:38:13 Visit Brennen Dinocarmelo [facility] 350.1.13.10 ity of [place] Jethro, Quinn [facility] 4.2.7.2. 686 [place] [phone] [facility] [address] 2021-07-16 2021-07-16 Outpatient R [facility] [id number] Univers 10:00:00 10:00:[id number] [facility] 2021-07-16 2021-07-16 Outpatient P [facility] [id number] Univers 10:00:00 10:00:00 MICHELLE it y of S, QUINN [facility] 2021-07-04 2021-07-04 Telephone Hutton Dino [facility] 1.2.840.114 [id number] Univers 00:00:00 00:00:00 Cam [place] 350.1.13.10 i ty of [place] [phone] Wa dical NAL [address] [place] [address] 2021-07-04 2021-07-04 Telephone Hutton Dino [facility] 1.2.840.114 [id number] Univers 00:00:00 00:00:00 Cam [place] 350.1.13.10 i ty of [id number] [phone] Wa dical NAL [address] [place] [address] 2021-07-04 2021-07-04 Telephone Brennen Dino [facility] 1.2.840.114 [id number] Univers 00:00:00 00:00:00 Cam [place] 350.1.13.10 i ty of [id number] [phone] Wa dical NAL [address] [place] [address] 2021-07-02 2021-07-02 Telephone Dino Hutton [facility] 1.2.840.114 [id number] Univers 00:00:00 00:00:00 Cam [place] 350.1.13.10 i ty of [id number] [phone] Wa dical NAL [address] [facility] [facility] 2021-06-26 2021-06-26 Telephone Jennifer Huttonen [facility] 1.2.840.114 [id number] Univers 00:00:00 00:00:00 Lakshmi SULLIVAN 350.1.13.10 i ty [facility] [id number] [phone] Wa dical NAL [address] [place] [address] 2021-06-24 2021-06-24 Abrasive Grader Shira, [facility] [place] 1.2.8 40.114 [id number] Univers 10:45:00 11:00:00 Visit Jennifer Huttoncarmelo S[place] 350.1.13.10 ity of [facility] [id number] [phone] Wa dical [address] 2021-06-24 2021-06-24 Outpatient R [facility] [id number] Univers 10:45:00 10:45:[id number] [facility] 2021-06-24 2021-06-24 Outpatient R BRENNEN DINO [facility] [id number] Univers 10:45:00 10:45:[address] [facility] 2021-06-21 2021-06-21 Case Dino Hutton [facility] 1.2.840.114 [id number] Univers 00:00:00 00:00:00 Management Lakshmi YODER 350.1.13.10 ity of [place] [phone] [address] 2021-06-19 2021-06-19 Abrasive Grader Shira, [facility] [place] 1.2.8 40.114 [id number] Univers 13:30:00 13:45:00 Visit HuttonJennifercarmelo [place] 350.1.13.10 ity of [place] [phone] Wa dical NAL [address] [place] [address] 2021-06-19 2021-06-19 Outpatient R DINO HUTTON [facility] [id number] 5Q-20 Univers 13:30:00 13:30:[id number] [facility] 2021-06-19 2021-06-19 Outpatient R DINO HUTTON [facility] [id number] Univers 10:00:00 11:58:[address] [facility] 2021-06-19 2021-06-19 Initial Dino Hutton [facility] [id number] Univers 10:00:00 11:58:50 Cam LAURIE 350.1.13.10 ity of [id number] [phone] Wa dical NAL [address] [facility] 2021-06-19 2021-06-19 Orders Doctor MARLENE 1.2.840.114 [id number] Univers 00:00:00 00:00:00 Only Unassigned, DEE DEE 350.1.13.10 ity of [place] [facility] [id number] Michael as [phone] [address] 2020-07-24 2020-07-24 Patient [facility] 1.2.840.114 [id number] Univers 00:00:00 00:00:00 Outreach Cameron PRIMARY 350.1.13.[address] [facility] [place] [phone] Wa dical [address] 2019-03-21 2019-03-21 Orders Doctor MARLENE 1.2.840.114 [id number] 00:00:00 00:00:00 Only Unassigned, DEE DEE 350.1.13.10 [place] [facility] [phone] 009 2019-03-21 2019-03-21 Orders Doctor MARLENE 1.2.840.114 [id number] Univers 00:00:00 00:00:00 Only Unassigned, DEE DEE 350.1.13.10 ity of [place] [facility] 4.2.7.2.686 Michael as [phone] [address] 2019-01-18 2019-01-18 [facility] 1.2.296.130 [id number] Univers 11:00:42 11:40:36 Angie C LUMBER TALLIER 350.1.13.10 ity of Visit [place] [id number] Michael as MATERNAL [phone] [facility] & [address] 2019-01-18 2019-01-18 Routine [place], [facility] 1.2.856.283 [id number] 11:00:42 11:40:36 Angie C LUMBER TALLIER 350.1.13.10 Visit REGIONAL 4.2.7.2.686 MATERNAL [phone] & [address] 2018-12-27 2018-12-27 Routine [place], [facility] 1.2.838.778 [id number] Univers 13:12:23 13:43:44 Angie C LUMBER TALLIER 350.1.13.10 ity of Visit [place] [id number] Michael as MATERNAL [phone] [address] 2018-12-01 2018-12-01 Routine [place], [facility] 1.2.120.173 [id number] [facility] 09:29:56 10:17:49 Angie C LUMBER TALLIER 350.1.13.10 ity of Visit [place] [id number] Michael as MATERNAL [phone] [address] Results Test Description Test Time Test Comments Results Result Comments Source POCT URINALYSIS W/O SPECIFIC GRAVITY 2021 02:56:00 Test Item Value Reference Range Interpretation Comme nts POCT PH U (test code = 3254) na 5-8 POCT U LEUK EST (test code = 3263) na Negative - Negative POCT U NIT (test code = 3262) na Negative - Negative POCT U PROT (test code = 3259) neg Negative - Negative POCT U GLU (test code = 3256) neg Negative - Negative POCT U KETONE (test code = 3258) na Negative - Negative POCT U BLD (test code = 3257) na Negative - Negative [facility] URINALYSIS W/O SPECIFIC [id number] 19:53:00 Test Item Value Reference Range Interpretation Comments POCT PH U (test code = 3254) N/A 5-8 POCT U LEUK EST (test code = N/A Negative - Negative 3263) POCT U NIT (test code = 3262) N/A Negative - Negative POCT U PROT (test code = 3259) NEGATIVE Negative - Negative POCT U GLU (test code = 3256) NEGATIVE Negative - Negative POCT U KETONE (test code = 3258) N/A Negative - Negative POCT U BLD (test code = 3257) N/A Negative - Negative Lab Interpretation (test code = Normal 17424-9) [facility] URINALYSIS W/O SPECIFIC [id number] 16:38:00 Test Item Value Reference Range Interpretation Comments POCT PH U (test code = 3254) N/A 5-8 POCT U LEUK EST (test code = N/A Negative - Negative 3263) POCT U NIT (test code = 3262) N/A Negative - Negative POCT U PROT (test code = 3259) Negative Negative - Negative POCT U GLU (test code = 3256) Negative Negative - Negative POCT U KETONE (test code = 3258) N/A Negative - Negative POCT U BLD (test code = 3257) N/A Negative - Negative [facility] URINALYSIS W/O SPECIFIC [id number] 20:15:00 Test Item Value Reference Range Interpretation Comments POCT PH U (test code = 3254) na 5-8 POCT U LEUK EST (test code = 3263) na Negative - Negative POCT U NIT (test code = 3262) na Negative - Negative POCT U PROT (test code = 3259) neg Negative - Negative POCT U GLU (test code = 3256) neg Negative - Negative POCT U KETONE (test code = 3258) na Negative - Negative POCT U BLD (test code = 3257) na Negative - Negative [facility] [id number] 20:14:00 Test Item Value Reference Range Interpretation Comments POCT PREG (test code = 1605) Positive On board controls acceptable with C Yes Line (test code = 3574) POCT PREG LOT # (test code = 3575) POCT PREG TEST DATE (test code = 3576) [facility] URINALYSIS W SPECIFIC [id number] 16:17:00 Test Item Value Reference Range Interpretation Comments POCT U SP GRAV (test code = 3255) . 1.005-1.025 POCT PH U (test code = 3254) . 5-8 POCT U LEUK EST (test code = 3263) . Negative - Negative POCT U NIT (test code = 3262) . Negative - Negative POCT U PROT (test code = 3259) Trace Negative - Negative POCT U GLU (test code = 3256) Neg Negative - Negative POCT U KETONE (test code = 3258) . Negative - Negative POCT U UROBILI (test code = 3260) . 0.2-1 POCT U BILI (test code = 3261) . Negative - Negative POCT U BLD (test code = 3257) . Negative - Negative POCT U COLOR (test code = 3266) POCT U APPEAR (test code = 3267) [facility] URINALYSIS W SPECIFIC [id number] 16:17:00 Test Item Value Reference Range Interpretation Comments POCT U SP GRAV (test code = 3255) . 1.005-1.025 POCT PH U (test code = 3254) . 5-8 POCT U LEUK EST (test code = 3263) . Negative - Negative POCT U NIT (test code = 3262) . Negative - Negative POCT U PROT (test code = 3259) Trace Negative - Negative POCT U GLU (test code = 3256) Neg Negative - Negative POCT U KETONE (test code = 3258) . Negative - Negative POCT U UROBILI (test code = 3260) . 0.2-1 POCT U BILI (test code = 3261) . Negative - Negative POCT U BLD (test code = 3257) . Negative - Negative POCT U COLOR (test code = 3266) POCT U APPEAR (test code = 3267) [facility] URINALYSIS W SPECIFIC [id number] 18:28:00 Test Item Value Reference Range Interpretation Comments POCT U SP GRAV (test code = 3255) . 1.005-1.025 POCT PH U (test code = 3254) . 5-8 POCT U LEUK EST (test code = 3263) . Negative - Negative POCT U NIT (test code = 3262) . Negative - Negative POCT U PROT (test code = 3259) Trace Negative - Negative POCT U GLU (test code = 3256) Neg Negative - Negative POCT U KETONE (test code = 3258) . Negative - Negative POCT U UROBILI (test code = 3260) . 0.2-1 POCT U BILI (test code = 3261) . Negative - Negative POCT U BLD (test code = 3257) . Negative - Negative POCT U COLOR (test code = 3266) POCT U APPEAR (test code = 3267) [facility] URINALYSIS W SPECIFIC [id number] 18:28:00 Test Item Value Reference Range Interpretation Comments POCT U SP GRAV (test code = 3255) . 1.005-1.025 POCT PH U (test code = 3254) . 5-8 POCT U LEUK EST (test code = 3263) . Negative - Negative POCT U NIT (test code = 3262) . Negative - Negative POCT U PROT (test code = 3259) Trace Negative - Negative POCT U GLU (test code = 3256) Neg Negative - Negative POCT U KETONE (test code = 3258) . Negative - Negative POCT U UROBILI (test code = 3260) . 0.2-1 POCT U BILI (test code = 3261) . Negative - Negative POCT U BLD (test code = 3257) . Negative - Negative POCT U COLOR (test code = 3266) POCT U APPEAR (test code = 3267) [facility] URINALYSIS W SPECIFIC [id number] 14:47:00 Test Item Value Reference Range Interpretation Comments POCT U SP GRAV (test code = 3255) . 1.005-1.025 POCT PH U (test code = 3254) . 5-8 POCT U LEUK EST (test code = 3263) . Negative - Negative POCT U NIT (test code = 3262) . Negative - Negative POCT U PROT (test code = 3259) Trace Negative - Negative POCT U GLU (test code = 3256) Neg Negative - Negative POCT U KETONE (test code = 3258) . Negative - Negative POCT U UROBILI (test code = 3260) . 0.2-1 POCT U BILI (test code = 3261) . Negative - Negative POCT U BLD (test code = 3257) . Negative - Negative POCT U COLOR (test code = 3266) POCT U APPEAR (test code = 3267) [facility]
--- NOTE | 2021-09-24 23:44 | EDPHYS ---
Physician Documentation [facility] Name: Marissa Hernandez Age: 26 yrs Sex: Female : 1995 Arrival Date: 09/24/2021 Time: 20:29 Bed 9 Private MD: ED Physician Víctor Epperson HPI: 09/24 22:31 This 26 yrs old Female presents to ER via Ambulatory with complaints of Sore pm1 Throat, Shortness Of Breath. 22:31 The patient presents with sore throat. The patient describes throat pain as raw, pm1 scratchy. 22:31 Onset: The symptoms/episode began/occurred 4 day(s) ago. Severity of symptoms: in the pm1 emergency department the symptoms are unchanged. Modifying factors: The symptoms are alleviated by nothing, the symptoms are aggravated by nothing, Patient's oral intake status: good. Associated signs and symptoms: Pertinent positives: earache. Associated signs and symptoms: Pertinent negatives Dysuria. The patient has not experienced similar symptoms in the past. The patient has not recently seen a physician. Historical: - Allergies: 21:29 No Known Allergies; as6 - Home Meds: 21:29 None [Active]; as6 - PMHx: 21:29 None; as6 - PSHx: 21:29 section; as6 - Immunization history:: Adult Immunizations up to date, Client reports having NOT received the Covid vaccine. - Social history:: Smoking status: Patient denies any tobacco usage or history of. ROS: 22:31 Constitutional: Negative for fever, chills, and weight loss. pm1 22:31 Neck: Negative for injury, pain, and swelling, Cardiovascular: Negative for chest pain, palpitations, and edema, Abdomen/GI: Negative for abdominal pain, nausea, vomiting, diarrhea, and constipation, Back: Negative for injury and pain, MS/Extremity: Negative for injury and deformity, Skin: Negative for injury, rash, and discoloration, Neuro: Negative for headache, weakness, numbness, tingling, and seizure. 22:31 ENT: Positive for sore throat. 22:31 Respiratory: Positive for cough, shortness of breath. 22:31 All other systems are negative. Exam: 22:31 Constitutional: This is a well developed, well nourished patient who is awake, alert, pm1 and in no acute distress. Head/Face: Normocephalic, atraumatic. 22:31 Back: No spinal tenderness. No costovertebral tenderness. Full range of motion. Skin: Warm, dry with normal turgor. Normal color with no rashes, no lesions, and no evidence of cellulitis. MS/ Extremity: Pulses equal, no cyanosis. Neurovascular intact. Full, normal range of motion. 22:31 ENT: Mouth: is normal, no acute changes, Lips: normal, moist, Oral mucosa: normal, pink and intact, moist, Posterior pharynx: Airway: no evidence of obstruction, Tonsils: bilaterally enlarged, with erythema, no exudate, no ulcerations, swelling, that is mild, erythema, that is mild, peritonsillar mass, is not appreciated. 22:31 Cardiovascular: Exam negative for acute changes, Rate: normal, Rhythm: regular, Pulses: no pulse deficits are appreciated. 22:31 Respiratory: Exam negative for acute changes, respiratory distress, shortness of breath. 22:31 Neuro: Exam negative for acute changes, Orientation: is normal, Mentation: is normal, Motor: is normal, moves all fours. Vital Signs: 21:27 BP 125 / 83; Pulse 111; Resp 18 S; Temp 98.2(O); Pulse Ox 100% on R/A; Weight 77.11 kg as6 (R); Height 4 ft. 11 in. (149.86 cm) (R); Pain 4/10; 21:27 Body Mass Index 34.34 (77.11 kg, 149.86 cm) as6 MDM: 21:48 Patient medically screened. pm1 23:43 Data reviewed: vital signs. Data interpreted: Pulse oximetry: on room air is 100 %. pm1 Interpretation: normal. Counseling: I had a detailed discussion with the patient and/or guardian regarding: the historical points, exam findings, and any diagnostic results supporting the discharge/admit diagnosis, lab results, the need for outpatient follow up, to return to the emergency department if symptoms worsen or persist or if there are any questions or concerns that arise at home. 09/24 21:31 Order name: Strep; Complete Time: 23:16 as09/24 21:31 Order name: Influenza Screen (a \\T\\ B); Complete Time: 23:30 as6 09/24 21:33 Order name: Influenza Screen (A ; Complete Time: 23:16 EDMS 09/24 21:34 Order name: COVID-19 SARS RT PCR (Document "Date of Onset" if Symptomatic) pm1 09/24 23:18 Order name: Throat Culture EDMS Administered Medications: No medications were administered Disposition Summary: 09/24/21 23:44 Discharge Ordered Location: Home pm1 Problem: new pm1 Symptoms: have improved pm1 Condition: Stable pm1 Diagnosis - Acute pharyngitis, unspecified pm1 Followup: pm1 - With: Emergency Department - When: As needed - Reason: Worsening of condition Followup: pm1 - With: Private Physician - When: 2 - 3 days - Reason: Recheck today's complaints, Continuance of care, Re-evaluation by your physician Discharge Instructions: - Discharge Summary Sheet pm1 - Pharyngitis pm1 Forms: - Medication Reconciliation Form pm1 - Thank You Letter pm1 - Antibiotic Education pm1 - Prescription Opioid Use pm1 Addendum: 09/26/2021 03:35 Co-signature as Attending Physician, Víctor Epperson MD I agree with the assessment and k dr plan of care. Signatures: Dispatcher [employer] EDMS Víctor Epperson MD MD kdr Chuy Lee NP ELECTRICAL MAINTENANCE TECHNICIAN pm1 Glen Salcedo, RN RN as6
--- NOTE | 2021-09-24 23:44 | ER ---
Nurse's Notes [facility] Name: Marissa Hernandez Age: 26 yrs Sex: Female : 1995 Arrival Date: 09/24/2021 Time: 20:29 Bed 9 Private MD: Diagnosis: Acute pharyngitis, unspecified Presentation: 09/24 21:27 Chief complaint: Patient states: "I am having a sore throat, shortness of breath, ear as6 pain". Coronavirus screen: Client presents with at least one sign or symptom that may indicate coronavirus-19. Standard/surgical mask placed on the client. Provider contacted for isolation considerations. Ebola Screen: No symptoms or risks identified at this time. Initial Sepsis Screen: Does the patient meet any 2 criteria? No. Patient's initial sepsis screen is negative. Does the patient have a suspected source of infection? No. Patient's initial sepsis screen is negative. Risk Assessment: Do you want to hurt yourself or someone else? Patient reports no desire to harm self or others. Onset of symptoms was September 21, 2021. 21:27 Method Of Arrival: Ambulatory as6 21:27 Acuity: MAURA 4 as6 Triage Assessment: 21:30 General: Appears in no apparent distress. Behavior is calm, cooperative. Pain: as6 Complains of pain in throat. EENT: Reports nasal congestion sore throat . Historical: - Allergies: 21:29 No Known Allergies; as6 - Home Meds: 21:29 None [Active]; as6 - PMHx: 21:29 None; as6 - PSHx: 21:29 section; as6 - Immunization history:: Adult Immunizations up to date, Client reports having NOT received the Covid vaccine. - Social history:: Smoking status: Patient denies any tobacco usage or history of. Screenin:00 Abuse screen: Denies threats or abuse. Nutritional screening: No deficits noted. jb4 Tuberculosis screening: No symptoms or risk factors identified. Fall Risk None identified. Assessment: 23:12 Reassessment: Patient appears in no apparent distress at this time. Patient and/or jb4 family updated on plan of care and expected duration. Pain level reassessed. Patient is alert, oriented x 3, equal unlabored respirations, skin warm/dry/pink. 23:55 Reassessment: Patient appears in no apparent distress at this time. Patient and/or jb4 family updated on plan of care and expected duration. Pain level reassessed. Patient is alert, oriented x 3, equal unlabored respirations, skin warm/dry/pink. Vital Signs: 21:27 BP 125 / 83; Pulse 111; Resp 18 S; Temp 98.2(O); Pulse Ox 100% on R/A; Weight 77.11 kg as6 (R); Height 4 ft. 11 in. (149.86 cm) (R); Pain 4/10; 21:27 Body Mass Index 34.34 (77.11 kg, 149.86 cm) as6 ED Course: 20:29 Patient arrived in ED. bp1 21:11 Chuy Lee NP is PHCP. pm1 21:11 Víctor Epperson MD is Attending Physician. pm1 21:29 Triage completed. as6 21:29 Arm band placed on. as6 22:15 Jamin Rogers, RN is Primary Nurse. jb4 23:00 Patient has correct armband on for positive identification. Bed in low position. Call jb4 light in reach. Side rails up X 1. 23:56 No provider procedures requiring assistance completed. Patient did not have IV access jb4 during this emergency room visit. Administered Medications: No medications were administered Medication: 23:55 VIS not applicable for this client. jb4 Outcome: 23:44 Discharge ordered by . pm1 23:56 Discharged to home ambulatory. jb4 23:56 Condition: stable 23:56 Discharge instructions given to patient, Instructed on discharge instructions, follow up and referral plans. Demonstrated understanding of instructions, follow-up care. 23:56 Patient left the ED. jb4 Signatures: Chuy Lee NP NIGHT SUPERVISOR pm1 Jamin Rogers, RN RN jb4 Mandy Nuñez bp1 Glen Salcedo RN RN as6
[2021-09-25 00:20] VITALS: BP 125/83; TEMP 98.2; O2SAT 100
== END 2021-09-24 23:56 | disposition home or self-care (01) ==
LOC: ER 20:26
DX: J02.9 Acute pharyngitis, unspecified (principal); Z20.822 Contact with and (suspected) exposure to COVID-19
CPT/HCPCS: 87070; 87081; 87804 ×2; 99281; U0003

== ENCOUNTER 2022-10-31 14:03 | Emergency (ER) | payer OTHER ==
--- OUTSIDE RECORDS SUMMARY | 2022-10-31 14:07 | XMS REPORT | Continuity of Care Document ---
:1995 Author Organization [facility] t Address [address] [facility] [address] [place] [address] Care Team Providers Name Role Phone Virgie Reno Primary Care Physician Doctor Unassigned, [place] Attending Clinician Unavailable DINO HUTTON Attending Clinician Unavailable Dino Hutton MD Attending Clinician Gilmer Vickers MD Attending Clinician DAI ALANIZ Attending Clinician Unavailable Dai Alaniz PA-C Attending Clinician WILFREDO MENENDEZ Attending Clinician Unavailable Wilfredo Menendez MD Attending Clinician Room, [facility] Attending Clinician Unavailable 2, [facility] Lab Attending Clinician Unavailable Kriss Harris MD Attending Clinician KRISS HARRIS Attending Clinician Unavailable Rama [place] MD Attending Clinician 1, [facility] Usg Room Attending Clinician Unavailable Ultrasound, Ang-m Attending Clinician Unavailable Alejandro Heredia DO Attending Clinician Stacey Guido RN Attending Clinician Unavailable Only, Ang Db Test Attending Clinician Unavailable Fatuma Carl MD Attending Clinician FATUMA CARL Attending Clinician Unavailable Mandy Mendoza Attending Clinician MANDY FIERRO Attending Clinician Unavailable CHEYENNE WADE Attending Clinician Unavailable Cheyenne Wade MD Attending Clinician [phone] Jacek Allison MD Attending Clinician JACEK ALLISON Attending Clinician Unavailable Georges Mcdaniel MD Attending Clinician GEORGES MCDANIEL Attending Clinician Unavailable 5, [facility] Usg Room Attending Clinician Unavailable Pob, [facility] Main Attending Clinician Unavailable Cameron [place] DO Attending Clinician Akinsipe WHCNP, Angie C Attending Clinician [phone] Dino Hutton MD Admitting Clinician DINO HUTTON Admitting Clinician Unavailable WILFREDO MENENDEZ Admitting Clinician Unavailable Wilfredo Menendez MD Admitting Clinician Payers Payer Name Policy Type Policy Number Effective Date Expiration Date S ource Problems Condition Condition Condition Status Onset Resolution Last Treating Co mments Source Name Details Category Date Date Treatment Clinician Date Bilateral Bilateral Disease Active Uni vers low back low back 7-28 ity of pain pain 00:00: [place] without without 00 Medical sciatica, sciatica, Bran ch unspecifie unspecifie d d chronicity chronicity Previous Previous Disease Active Unive rs 2-16 ity of section section 00:00: [place] [address] Medical Branch Lump of Lump of Disease Active Univers axilla, axilla, 2-16 ity of left left 00:00: [place] [address] Medical Branch Anemia, Anemia, Disease Active 2018-05 Univers 1-18 it y of 00:00: [place] [address] Medical Branch Obesity Obesity Disease Active 2018-05 Univers (BMI (BMI 0-09 ity of 30-39.9) 30-39.9) 00:00: [address] Allergies, Adverse Reactions, Alerts Allergy Allergy Status Severity Reaction(s) Onset Inactive Treating Comm ents Source Name Type Date Date Clinician NO KNOWN Drug Active Univers ALLERGIE Class ity of S [facility] Social History Social Habit Start Date Stop Date Quantity Comments Source Exposure to 2021-11-18 2021-11-[address] [facility]00 [facility] (event) Branch Tobacco use and 2021-11-28 2021-11-28 Smokeless tobacco Un iversity of exposure 00:00:00 00:00:00 non-user [facility] Alcohol intake 2021-11-28 2021-11-28 Current University 00:00:00 00:00:00 non-drinker of [facility] alcohol (finding) [place] Sex Assigned At [birth year] Universit y of 00:00:00 00:00:00 [facility] Smoking Status Start Date Stop Date Source Never smoked tobacco [facility] Medications Ordered Filled Start Stop Current Ordering Indication Dosage Frequency Signature Comments Components Source Medication Medication Date Date Medication? Clinician (SIG) Name Name ferrous Yes [id number] 325mg Take 1 Un eric sulfate 325 7-19 tablet by ity of mg (65 mg 00:00[place] 00 the Medical tablet morning Branch and 1 tablet in the evening. docusate Yes [id number] 100mg Take 1 U nivers 100 mg 7-19 capsule by ity of capsule 00:00: [place] 00 daily as Medical needed for Branch Constipati on. ferrous Yes [id number] 325mg Take 1 Un eric sulfate 325 7-19 tablet by ity of mg (65 mg 00:00: [place] iron[place] 00 the Medical tablet morning Branch and 1 tablet in the evening. docusate Yes [id number] 100mg Take 1 U nivers 100 mg 7-19 capsule by ity of capsule 00:00: [place] 00 daily as Medical needed for Branch Constipati on. ferrous Yes [id number] 325mg Take 1 Un eric sulfate 325 7-19 tablet by ity of mg (65 mg 00:00: [place] iron[place] 00 the Medical tablet morning Branch and 1 tablet in the evening. docusate Yes [id number] 100mg Take 1 U nivers 100 mg 7-19 capsule by ity of capsule 00:00: [place] 00 daily as Medical needed for Branch Constipati on. Yes [id number] 1{tbl} Take 1 Univers vitamin 7-06 tablet by ity of w/FA tablet 00:00: mouth [place] 00 daily. Medical Branch ibuprofen Yes [id number] 600mg Take 1 Univers 600 mg 7-06 tablet by ity of tablet 00:00: mouth [place] 00 every 6 Medical (six) Branch hours as needed (Pain). Take with food or milk. Yes [id number] 1{tbl} Take 1 Univers vitamin 7-06 tablet by ity of w/FA tablet 00:00: mouth [place] 00 daily. Medical Branch ibuprofen Yes [id number] 600mg Take 1 Univers 600 mg 7-06 tablet by ity of tablet 00:00: mouth [place] 00 every 6 Medical (six) Branch hours as needed (Pain). Take with food or milk. Yes [id number] 1{tbl} Take 1 Univers vitamin 7-06 tablet by ity of w/FA tablet 00:00: mouth [place] 00 daily. Medical Branch ibuprofen Yes [id number] 600mg Take 1 Univers 600 mg 7-06 tablet by ity of tablet 00:00: mouth [place] 00 every 6 Medical (six) Branch hours as needed (Pain). Take with food or milk. Immunizations Ordered Filled Immunization Date Status Comments [facility] e Immunization Name Name [facility] 2018-12-01 Completed University of 00:00:00 [facility] TD 2018-12-01 Completed University 00:00: [facility] 2018-12-01 Completed University of 00:00: [facility] 2010-05-04 Completed University of 00:00:00 [facility] 2010-05-04 Completed University of 00:00:00 [facility] 2010-05-04 Completed [place] of 00:00:00 [facility] Vital Signs Vital Name Observation Time Observation Value Comments Source Systolic blood 2021-11-28 16:11:00 114 mm[Hg] Univer sity of pressure [facility] Diastolic blood 2021-11-28 16:11:00 79 mm[Hg] Unive rsity of [facility] Heart rate 2021-11-28 16:11:00 78 /min [facility] Body temperature 2021-11-28 16:11:00 36.72 Bettina [facility] rate 2021-11-28 16:11:00 18 /min [facility] Body height 2021-11-28 16:11:00 149.9 cm [facility] Body weight 2021-11-28 16:11:00 69.673 kg [facility] BMI 2021-11-28 16:11:00 31.02 kg/m2 [facility] Procedures Procedure Date / Time Performing Clinician Source Performed STERILIZATION CONSENT 2022-01-01 05:01:00 Doctor Unaoscar, [facility] FORM Name [facility] URINE CULTURE 2021-11-28 16:42:00 Dino Hutton [place] o f [facility] GALV ONLY - VAGINAL 2021-11-28 16:39:00 Dino Hutton [facility] PATHOGENS BY NUCLEIC Medical Bra nch ACID TESTING POCT URINALYSIS W/O 2021-11-28 00:00:00 HuttonDino [facility] SPECIFIC GRAVITY [facility] Encounters Start End Encounter Admission Attending Care Care Encounter Source Date/Time Date/Time Type Type Clinicians Facility Department ID 2022-01-01 2022-01-01 Orders Doctor ROSARIO 1.2.840.114 [id number] Univers 00:00:00 00:00:00 Only Unassigned, DEE DEE 350.1.13.10 ity of [place] [facility] 4.2.7.2.686 Michael as [phone] [place] [address] Branch 2021-12-30 2021-12-30 Outpatient R DINO HUTTON [facility] [id number] Univers 09:30:00 09:30:00 ity [facility] 2021-12-25 2021-12-25 Outpatient R DINO HUTTON [facility] [id number] Univers 09:30:00 09:30:00 ity [facility] 2021-12-23 2021-12-23 Telephone Dino Hutton [place] 1.2.840.114 [id number] Univers 00:00:00 00:00:00 Cam [place] 350.1.13.10 i ty [place] [phone] [facility] [address] [facility] 2021-11-28 2021-11-28 Outpatient R HUTTONJENNIFEREN [facility] [id number] Univers 11:15:00 11:46:59 ity of [facility] 2021-11-28 2021-11-28 Routine Brennen [facility] 1.2.421.310 [id number] Univers 11:15:00 11:46:59 Ralf [place] 350.1.13.10 ity of [place] 4[place] [id number] [address] 2021-11-19 2021-11-19 Emergency Gilmer Vickers [place] 1.2.840. 114 [id number] Univers 05:36:00 12:40:00 Dino Hutton Ralf [place] 350.1.13.10 [place] of [place] 4.2.7.2.[place] [id number] [facility] 083 [place] 2021-11-19 2021-11-19 Outpatient X DINO HUTTON [place] [id number] Univers 05:36:00 12:40:00 ity of [facility] 2021-11-19 2021-11-19 Orders Doctor ROSARIO 1.2.840.114 [id number] Univers 00:00:00 00:00:00 Only Unassigned, DEE DEE 350.1.13.10 ity of [place] [facility] 4.2.7.2.686 Michael as [phone] [facility] 009 [place] 2021-11-11 2021-11-11 Outpatient R KATTY [facility] [id number] Univers 13:30:00 14:22:57 DAI ity of [facility] 2021-11-11 2021-11-11 Routine Katty [place] 1.2.867.082 [id number] Univers 13:30:00 14:22:57 Dai [place] 350.1.13.10 [place] of [place].2.[place] [phone] Oh dical NAL [address] [facility] 2021-11-11 2021-11-11 Telephone Dino Hutton [place] 1.2.840.114 [id number] Univers 00:00:00 00:00:00 Ralf [place] 350.1.13.10 i ty [place].2.[place] [phone] Oh dical NAL [address] [facility] 2021-11-05 2021-11-07 Inpatient P WILFREDO MENENDEZ [place] [id number] Univers 09:52:00 18:50:00 ity of [facility] 2021-11-05 2021-11-07 Hospital Dino Hutton [place] 1.2.840.114 [id number] Univers 09:52:00 18:50:00 Encounter Wilfredo Menendez 350.1.13.10 [place].2.[place] [id number] [facility] [address] [place] 2021-11-05 2021-11-05 Outpatient R KATTY [facility] [id number] Univers 09:00:00 10:05:43 DAI ity of [facility] 2021-11-05 2021-11-05 Routine Room, [facility] 1.2.840.1 14 [id number] Univers 09:00:00 10:05:43 Dai Alaniz 350.1.13.10 ity of [place] [id number] Oh dical NAL [address] [facility] 2021-11-05 2021-11-05 Orders Doctor MARLENE 1.2.840.114 [id number] Univers 00:00:00 00:00:00 Only Unassigned, DEE DEE 350.1.13.10 ity of [place] [facility] 4.2.7.2.686 Michael as [id number] [facility] 009 [place] 2021-11-05 2021-11-05 Surgery Wilfredo Menendez [place] 1.2.840.114 [id number] Univers 00:00:00 00:00:00 [place] 350.1.13.10 i ty [place]2.[place].2.[place] [id number] [address] 2021-11-01 2021-11-01 Soil Expert 2, [facility] 1.2.840.114 [id number] Univers 10:30:00 10:45:00 Visit AdKriss ceron [place]UR[place] 350.1.13.10 [place]y of [place] [phone] Oh dical [facility] [address] [facility] 2021-11-01 2021-11-01 Outpatient R SHANNAN [facility] [id number] Univers 08:00:00 09:29:20 KRISS ity of [facility] 2021-11-01 2021-11-01 Routine Room, [facility] 1.2.840.1 [id number] Univers 08:00:00 09:29:20 AdumKriss [place]UR[place] 350.1.13.10 [place]y of [place] 4[place].2.[place] [id number] [facility] [address] [facility] 2021-10-28 2021-10-28 Outpatient R HUTTONDINO [facility] [id number] Univers 13:00:00 14:08:38 ity of [facility] 2021-10-28 2021-10-28 Routine Room, [facility] 1.2.840.1 [id number] Univers 13:00:00 14:08:38 Dino Hutton Ralf [place] 350.1.13.10 ity of [place] [id number] Oh dical NAL [address] [facility] 2021-10-24 2021-10-24 Outpatient R HUTTON DINO [facility] [id number] Univers 14:00:00 15:30:38 ity of [facility] 2021-10-24 2021-10-24 Routine Room, [facility] 1.2.840.1 14 [id number] Univers 14:00:00 15:30:38 Rama [place] 350.1.13.10 ity of Visit [facility] 4.2.7.2.686 [place] PROFESSIO [phone] Oh dical NAL [address] [facility] 2021-10-24 2021-10-24 Soil Expert 1, [facility] Us Room UNIVERSIT 1 .2.840.114 [id number] Univers 09:45:00 10:34:52 Visit Rama Hamilton [facility] 350.1.13.10 ity of CLINICS 4.2.7.2.[place] [id number] [facility] 104 [place] 2021-10-22 2021-10-22 Outpatient R [facility] [id number] Univers 11:00:00 11:00:00 ity of [facility] 2021-10-21 2021-10-21 Outpatient R [facility] [id number] Univers 10:00:00 10:00:00 ity of [facility] 2021-10-21 2021-10-21 Orders Doctor MARLENE 1.2.840.114 [id number] Univers 00:00:00 00:00:00 Only Unassigned, DEE DEE 350.1.13.10 ity of [place] [facility] 4.2.7.2.686 Michael as [id number] [address] 2021-10-17 2021-10-17 Outpatient R KATTY [facility] [id number] Univers 10:00:00 10:54:04 DAI ity of [facility] 2021-10-17 2021-10-17 Routine Room, [facility] 1.2.840.1 [id number] Univers 10:00:00 10:54:04 Dai Alaniz 350.1.13.10 ity of Visit [facility] 4.2.7.2.[place] [id number] Oh dical NAL [address] [facility] 2021-10-15 2021-10-15 Outpatient R SHANNAN [facility] [id number] Univers 10:00:00 10:00:00 KRISS ity of [facility] 2021-10-14 2021-10-14 Outpatient R [facility] [id number] Univers 10:00:00 10:00:00 ity of [facility] 2021-10-10 2021-10-10 Outpatient R DINO HUTTON [facility] [id number] Univers 10:00:00 10:43:15 ity [facility] 2021-10-10 2021-10-10 Routine Room, [facility] 1.2.840.1 14 [id number] Univers 10:00:00 10:43:15 Dino Hutton Cam [place] 350.1.13.10 ity of [place]2.[place] [id number] Oh francisco HAR[place] [address] [facility] 2021-10-09 2021-10-09 Soil Expert Ultrasound, Avelino-janelle [place] 1.2 .840.114 [id number] Univers 13:30:00 14:45:00 Visit Alejandro Heredia EARLY BREASTFEEDING CARE SPECIALIST 350.1.13.10 ity [facility] 4.2.7.2.686 Michael as MATERNAL [phone] Med ical & CHILD [address] [place] [address] 2021-10-09 2021-10-09 Outpatient P TASHA [facility] [id number] Univers 13:30:00 13:30:00 ALEJANDRO ity [facility] 2021-10-08 2021-10-08 Telephone MARLENE Guido 1.2.440.278 [id number] Univers 00:00:00 00:00:00 Stacey FUNEZ 350.1.13.10 it y of [facility] 4.2.7.2.686 Michael as [phone] [address] 2021-10-07 2021-10-07 Laboratory Only, Ang Db Test [place] 1.2.8 40.114 [id number] Univers 11:45:00 12:00:00 Only Fatuma Carl [facility] 350.1.13.10 ity of [place] 4.2.7.2.686 Michael as CHERELLE?BLEA [phone] Oh dical CHERYLEY [address] [facility] 2021-10-07 2021-10-07 Outpatient R ALAINA [facility] [id number] Univers 11:45:00 11:40:18 FATUMA itglory of [facility] 2021-10-07 2021-10-07 Routine Room, [facility] 1.2.840.1 14 [id number] Univers 10:00:00 11:15:11 Dino Hutton [facility] 350.1.13.10 ity of [place].2.[place] [phone] Oh dic[address] 2021-10-02 2021-10-02 Urgent [facility] 1.2.840.114 [id number] Univers 12:00:00 12:20:00 [facility] 350.1.13.10 i ty of [place] 4.2.7.2.686 Michael as CHERELLE?BLEA [id number] [address] OFFICE [facility] 2021-10-02 2021-10-02 Outpatient R SRI [facility] [id number] Univers 12:00:00 12:00:00 MANDY ity o f [facility] 2021-09-25 2021-09-25 Routine Dino Hutton [place] 1.2.804.687 [id number] Univers 15:45:00 15:49:34 [facility] 350.1.13.10 ity of [place]2.[place]ESS[place] [id number] [address] 2021-09-25 2021-09-25 Outpatient P CHRISTIE [facility] [id number] Univers 13:30:00 14:15:31 MICHELLE it y of S, QUINN [facility] 2021-09-25 2021-09-25 Soil Expert [facility] 1.2 .840.114 [id number] Univers 13:30:00 14:15:31 Visit Cheyenne Wade EARLY BREASTFEEDING CARE SPECIALIST 350.1. 13.10 ity of REGIONAL 4.2.7.2.686 Michael as MATERNAL [id number] [facility] ical & CHILD [address] [place] [address] 2021-09-24 2021-09-24 Outpatient P DINO HUTTON [facility] [id number] Univers 12:55:55 23:59:00 ity of [facility] 2021-09-24 2021-09-24 Hospital Dino Hutton [place] 1.2.840.114 [id number] Univers 12:55:55 23:59:00 Encounter Cam LAUR[place] 350.1.13.10 it[place] of [place].2.7.2.[place] [id number] [facility] 8[address] [place] 2021-09-24 2021-09-24 Orders Doctor MARLENE 1.2.840.114 [id number] Univers 00:00:00 00:00:00 Only Unassigned, DEE DEE 350.1.13.10 ity of [place] [facility] 4.2.7.2.686 Michael as [id number] [facility] [address] [place] 2021-09-11 2021-09-11 Routine Dino Hutton [place] 1.2.804.348 [id number] Univers 15:45:00 15:45:00 Cam [place] 350.1.13.10 ity of [place] 4.2.7.2.686 [place] [facility] [phone] Oh dical NAL [address] [facility] 2021-09-11 2021-09-11 Soil Expert Ultrasound, [facility] 1.2 .840.114 [id number] Univers 14:00:00 15:15:00 Visit Jacek Allison EARLY BREASTFEEDING CARE SPECIALIST 350.1.13.10 ity of REGIONAL 4.2.7.2.686 Michael as MATERNAL [phone] Med ical & CHILD 369 [facility] 2021-09-11 2021-09-11 Outpatient P KAR [facility] [id number] Univers 14:00:00 14:00:00 JACEK mccabe [facility] 2021-09-11 2021-09-11 Orders Doctor MARLENE 1.2.840.114 [id number] Univers 00:00:00 00:00:00 Only Unassigned, DEE DEE 350.1.13.10 ity of [place] [facility] 4.2.7.2.686 Michael as [id number] [address] 2021-08-28 2021-08-28 Soil Expert Ultrasound, [facility] 1.2 .840.114 [id number] Univers 13:30:00 14:45:25 Visit Violeta Georges Mirza EARLY BREASTFEEDING CARE SPECIALIST 350.1.13.1 0 ity of [facility] 4.2.7.2.686 Michael as MATERNAL [phone] Med ical & CHILD [address] [place] [address] 2021-08-28 2021-08-28 Outpatient P VIOLETA [facility] [id number] Univers 13:30:00 13:30:00 GEORGES itglory [facility] 2021-08-26 2021-08-26 Outpatient R DINO HUTTON [facility] [id number] Univers 16:15:00 16:15:00 ity [facility] 2021-08-14 2021-08-14 Outpatient P DINO HUTTON [facility] [id number] Univers 13:30:00 13:30:00 ity [facility] 2021-07-18 2021-07-18 Outpatient R DINO HUTTON [facility] [id number] Univers 11:15:00 12:21:01 ity [facility] 2021-07-18 2021-07-18 Routine Dino Hutton [place] 1.2.121.280 [id number] Univers 11:15:00 12:21:01 Cam [place] 350.1.13.10 ity of [place] 4.2.7.2.[place] [phone] Oh dical [address] 2021-07-18 2021-07-18 Orders Doctor MARLENE 1.2.840.114 [id number] Univers 00:00:00 00:00:00 Only Unassigned, DEE DEE 350.1.13.10 ity of [place] [facility] 4.2.7.2.686 Michael as [id number] [address] 2021-07-16 2021-07-16 Soil Expert 5, [facility] Usg Room UNIVERSIT 1 .2.840.114 [id number] Univers 10:00:00 12:38:13 Visit Dino Hutton HEALTH 350.1.13.10 ity of [place]eth[place], Quinn CLINICS 4.2.7.2. 686 [place] [id number] [address] 2021-07-16 2021-07-16 Outpatient P CHRISTIE [facility] [id number] Univers 10:00:00 10:00:00 MICHELLE it y of S, QUINN [facility] 2021-07-04 2021-07-04 Telephone Dino Htuton [place] 1.2.840.114 [id number] Univers 00:00:00 00:00:00 Cam [place] 350.1.13.10 i ty of [place] 4.2.7.2.[place] PROFESS[place] [phone] Oh dic[address] 2021-07-04 2021-07-04 Telephone Dino Hutton [place] 1.2.840.114 [id number] Univers 00:00:00 00:00:00 Cam [place] 350.1.13.10 i ty of [place] 4.2.7.2.[place] PROFESS[place] [phone] Oh dical NAL [address] [place] [address] 2021-07-04 2021-07-04 Telephone Dino Hutton [place] 1.2.840.114 [id number] Univers 00:00:00 00:00:00 Cam [place] 350.1.13.10 i ty of [place] 4.2.7.2.686 [place] PROFESS[place] [id number] Oh dical NAL [address] [place] [address] 2021-07-02 2021-07-02 Telephone Dino Hutton [place] 1.2.840.114 [id number] Univers 00:00:00 00:00:00 Cam [place] 350.1.13.10 i ty of [place] 4.2.7.2.686 [place] [phone] Oh dical NAL [address] [place] [address] 2021-06-26 2021-06-26 Telephone Dino Htuton [place] 1.2.840.114 [id number] Univers 00:00:00 00:00:00 Cam [place] 350.1.13.10 i ty of [place] 4.2.7.2.686 [place] PROFESS[place] [phone] [address] 2021-06-24 2021-06-24 Soil Expert Shira, [facility] Main [place] 1.2.8 40.114 [id number] Univers 10:45:00 11:00:00 Visit Dino Hutton [place] 350.1.13.10 ity of [place] 4.2.7.2.[place] PROFESS[place] [id number] Oh dic[address] 2021-06-24 2021-06-24 Outpatient R BRENNEN DINO [facility] [id number] Univers 10:45:00 10:45:00 ity of [facility] 2021-06-21 2021-06-21 Case Brennen Dino [facility] 1.2.840.114 [id number] Univers 00:00:00 00:00:00 Management Cam BEBA 350.1.13.10 ity of WOM[place]'S 4.2.7.2.686 [place] HEALTH [phone] [address] 2021-06-19 2021-06-19 Soil Expert Shira, Adc Lab Main [place] 1.2.8 40.114 [id number] Univers 13:30:00 13:45:00 Visit Dino Hutton [place] 350.1.13.10 ity of [place] 4.2.7.2.[place] PROFESS[place] [phone] Oh dic[address] 2021-06-19 2021-06-19 Outpatient R BRENNEN DINO [facility] [id number] Univers 10:00:00 11:58:50 ity of [facility] 2021-06-19 2021-06-19 Initial Dino Hutton [place] 1.2.191.755 [id number] Univers 10:00:00 11:58:50 Cam [place] 350.1.13.10 ity of Visit [place] 4.2.7.2.[place]ESS[place] [phone] [address] 2021-06-19 2021-06-19 Orders Doctor ROSARIO 1.2.840.114 [id number] Univers 00:00:00 00:00:00 Only Unassigned, DEE DEE 350.1.13.10 ity of [place] [facility] 4.2.7.2.686 Michael as [phone] [address] 2020-07-24 2020-07-24 Patient Alfonso BETO 1.2.840.114 [id number] Univers 00:00:00 00:00:00 Outreach Cameron PRIMARY 350.1.13.10 i ty of [facility] 4[place]2.7.2.[place] [phone] Oh dical [address] 2019-03-21 2019-03-21 Orders Doctor MARLENE 1.2.840.114 [id number] 00:00:00 00:00:00 Only Unassigned, DEE DEE 350.1.13.10 [facility] 4.2.7.2.686 [phone] [facility] 2019-03-21 2019-03-21 Orders Doctor MARLENE 1.2.840.114 [id number] [facility] 00:00:00 00:00:00 Only Unassigned, DEE DEE 350.1.13.10 ity of [facility] 4.2.7.2.686 Michael as [phone] [address] 2019-01-18 2019-01-18 Routine [facility], [facility] [id number] 11:00:42 11:40:36 Angie C EARLY BREASTFEEDING CARE SPECIALIST [id number] Visit REGIONAL [id number] MATERNAL [phone] & CHILD [address] [place] [address] 2019-01-18 2019-01-18 Routine [place], [facility] [id number] [facility] 11:00:42 11:40:36 Angie C EARLY BREASTFEEDING CARE SPECIALIST [id number] ity of Visit REGIONAL [id number] Michael as MATERNAL [phone] Med ical & CHILD [address] [place] [address] 2018-12-27 2018-12-27 Routine [place], [facility] [id number] [facility] 13:12:23 13:43:44 Angie C EARLY BREASTFEEDING CARE SPECIALIST [id number] ity of Visit REGIONAL [id number] Michael as MATERNAL [phone] [facility] ical & CHILD [address] [place] [address] 2018-12-01 2018-12-01 Routine [facility], [facility] [id number] [facility] 09:29:56 10:17:49 Angie Quinonez EARLY BREASTFEEDING CARE SPECIALIST [id number] ity of Visit [facility] [id number] Michael as MATERNAL [phone] [facility] & CHILD [address] [place] [address] Results Test Description Test Time Test Comments Results Result Comments Source POCT URINALYSIS W/O SPECIFIC GRAVITY 2021-11-28 16:26:00 Test Item Value Reference Range Interpretation Comme nts POCT PH U (test code = 3254) 5 mg/dl 5-8 POCT U LEUK EST (test code = 3263) trace Negative - Negative POCT U NIT (test code = 3262) negative Negative - Negative POCT U PROT (test code = 3259) negative Negative - Negative POCT U GLU (test code = 3256) negative Negative - Negative POCT U KETONE (test code = 3258) negative Negative - Negative POCT U BLD (test code = 3257) negative Negative - Negative [facility]
--- NOTE | 2022-10-31 16:19 | ER ---
Nurse's Notes [facility] Name: Marissa Hernandez Age: 27 yrs Sex: Female : 1995 Arrival Date: 10/31/2022 Time: 14:03 Bed DX4 Private MD: Diagnosis: Otalgia, bilateral;Pain in throat Presentation: 10/31 14:15 Chief complaint: Patient states: 3 DAYS THROAT PAIN AND DIFFICULTY SWALLOWING. bp Coronavirus screen: At this time, the client does not indicate any symptoms associated with coronavirus-19. Ebola Screen: No symptoms or risks identified at this time. Initial Sepsis Screen: Does the patient meet any 2 criteria? No. Patient's initial sepsis screen is negative. Does the patient have a suspected source of infection? No. Patient's initial sepsis screen is negative. Risk Assessment: Do you want to hurt yourself or someone else? Patient reports no desire to harm self or others. Onset of symptoms is unknown. 14:15 Method Of Arrival: Ambulatory bp 14:15 Acuity: MAURA 3 bp Triage Assessment: 14:16 General: Appears in no apparent distress. Behavior is cooperative, appropriate for age, bp anxious. Pain: Complains of pain in right ear, left ear and neck. EENT: Reports pain when swallowing. Neuro: No deficits noted. Cardiovascular: No deficits noted. Respiratory: No deficits noted. GI: No signs and/or symptoms were reported involving the gastrointestinal system. : No signs and/or symptoms were reported regarding the genitourinary system. Derm: No deficits noted. Musculoskeletal: No deficits noted. Historical: - Allergies: 14:16 No Known Allergies; bp - PSHx: 14:16 section; bp - Immunization history:: Adult Immunizations. - Social history:: Smoking status: Patient denies any tobacco usage or history of. Screenin:17 [facility] ED Fall Risk Assessment (Adult) History of falling in the last 3 months, bp including since admission No falls in past 3 months (0 pts). Abuse screen: Denies threats or abuse. Denies injuries from another. Nutritional screening: No deficits noted. Tuberculosis screening: No symptoms or risk factors identified. Assessment: 14:17 General: SEE TRIAGE NOTE. bp 16:15 Reassessment: Patient appears in no apparent distress at this time. No changes from ll1 previously documented assessment. Patient and/or family updated on plan of care and expected duration. Pain level reassessed. Vital Signs: 14:15 BP 110 / 64; Pulse 83; Resp 16; Temp 97.5; Pulse Ox 100% ; Weight 72.57 kg; Height 4 bp ft. 11 in. ; 14:15 Body Mass Index 32.32 (72.57 kg, 149.86 cm) bp ED Course: 14:06 Patient arrived in ED. mr 14:07 Ramin Yousif DO is Attending Physician. ms3 14:16 Triage completed. bp 14:16 Arm band placed on. bp 14:17 Patient has correct armband on for positive identification. bp 15:30 Throat Culture Sent. bp 16:13 Emeka Olivas, RN is Primary Nurse. ll1 16:18 Rashawn Field MD is Referral Physician. ms3 16:36 No provider procedures requiring assistance completed. Patient did not have IV access mb9 during this emergency room visit. Administered Medications: No medications were administered Medication: 14:17 VIS not applicable for this client. bp Outcome: 16:18 Discharge ordered by MD. ms3 16:36 Discharged to home ambulatory. mb9 16:36 Condition: stable 16:36 Discharge instructions given to patient, Instructed on discharge instructions, follow up and referral plans. Demonstrated understanding of instructions, follow-up care, medications, Prescriptions given X 2. 16:39 Patient left the ED. mb9 Signatures: Liseth KhantierSteven RN RN bp Emeka Olivas, JUAN CARLOS RN [facility] Ramin Yousif DO DO [facility] Liseth Contreras RN RN mb9
--- NOTE | 2022-10-31 16:19 | EDPHYS ---
Physician Documentation [facility] Name: Marissa Hernandez Age: 27 yrs Sex: Female : 1995 Arrival Date: 10/31/2022 Time: 14:03 Bed DX4 Private MD: ED Physician Ramin Yousif HPI: 10/31 18:12 This 27 yrs old Female presents to ER via Ambulatory with complaints of Sore ms3 Throat. 18:12 27-year-old female presents for sore throat and bilateral ear pain has been ongoing for ms3 3 days. Patient endorses chills. Patient denies nausea vomiting or cough. Patient states the pain is moderate. Patient denies alleviating or inciting factors. Historical: - Allergies: 14:16 No Known Allergies; bp - PSHx: 14:16 section; bp - Immunization history:: Adult Immunizations. - Social history:: Smoking status: Patient denies any tobacco usage or history of. ROS: 18:12 Constitutional: Negative for fever, and chills. Neck: Negative for injury, pain, and ms3 swelling, Cardiovascular: Negative for chest pain, and palpitations. Respiratory: Negative for shortness of breath, cough, wheezing, and pleuritic chest pain, Abdomen/GI: Negative for abdominal pain, nausea, vomiting, diarrhea, and constipation. 18:12 MS/Extremity: Negative for injury and deformity, Neuro: Negative for headache, weakness, numbness, tingling. 18:12 ENT: Positive for sore throat. 18:12 All other systems are negative. Exam: 18:12 Constitutional: This is a well developed, well nourished patient who is awake, alert, ms3 and in no acute distress. Head/Face: Normocephalic, atraumatic. Chest/axilla: Normal chest wall appearance and motion. Nontender with no deformity. Cardiovascular: Regular rate and rhythm with a normal S1 and S2. No gallops, murmurs, or rubs. Normal PMI, no JVD. No pulse deficits. Respiratory: Lungs have equal breath sounds bilaterally, clear to auscultation and percussion. No rales, rhonchi or wheezes noted. No increased work of breathing, no retractions or nasal flaring. Abdomen/GI: Soft, non-tender, with normal bowel sounds. No distension or tympany. No guarding or rebound. No evidence of tenderness throughout. 18:12 ENT: Posterior pharynx: Tonsils: with erythema, Uvula: normal, swelling, that is mild, erythema, that is moderate, exudate, is not appreciated, peritonsillar mass, is not appreciated, pooling of secretions, is not appreciated. Vital Signs: 14:15 BP 110 / 64; Pulse 83; Resp 16; Temp 97.5; Pulse Ox 100% ; Weight 72.57 kg; Height 4 bp ft. 11 in. ; 14:15 Body Mass Index 32.32 (72.57 kg, 149.86 cm) bp MDM: 14:24 Patient medically screened. ms3 18:12 Differential diagnosis: pharyngitis, upper respiratory infection, viral syndrome. Data ms3 reviewed: vital signs, nurses notes, and as a result, I will discharge patient. Counseling: I had a detailed discussion with the patient and/or guardian regarding: the historical points, exam findings, and any diagnostic results supporting the discharge/admit diagnosis, lab results, the need for outpatient follow up, to return to the emergency department if symptoms worsen or persist or if there are any questions or concerns that arise at home. Special discussion: I discussed with the patient/guardian in detail that at this point there is no indication for admission to the hospital. It is understood, however, that if the symptoms persist or worsen the patient needs to return immediately for re-evaluation. 10/31 14:24 Order name: Rapid Strep ms3 10/31 15:19 Order name: Throat Culture EDMS Administered Medications: No medications were administered Disposition Summary: 10/31/22 16:18 Discharge Ordered Location: Home ms3 Condition: Stable ms3 Diagnosis - Otalgia, bilateral ms3 - Pain in throat ms3 Followup: ms3 - With: Rashawn Field MD - When: 2 - 3 days - Reason: Recheck today's complaints Discharge Instructions: - Discharge Summary Sheet ll1 - Sore Throat ms3 - Sore Throat, [id number] ms3 Forms: - Work release form ll1 - Medication Reconciliation Form ms3 - Thank You Letter ms3 - Antibiotic Education ms3 - Prescription Opioid Use ms3 - [email or web address] ms3 Prescriptions: - Flonase Allergy Relief 50 mcg/actuation Nasal spray, suspension - spray 2 spray by INTRANASAL route daily administer into each nostril; 1 unit; ms3 Refills: 0, Product Selection Permitted - Claritin 10 mg Oral Tablet - take 1 tablet by ORAL route once daily As needed; 30 tablet; Refills: 0, ms3 Product Selection Permitted Signatures: Dispatcher MedSteven Duarte RN RN Ramin Thomas DO DO ms3
[2022-10-31 17:04] VITALS: BP 110/64; TEMP 97.5; O2SAT 100
== END 2022-10-31 16:39 | disposition home or self-care (01) ==
LOC: ER 14:03
DX: H92.03 Otalgia, bilateral (principal); R07.0 Pain in throat
CPT/HCPCS: 87070; 87081; 99283